=== PATIENT | male | born 1945 | race Caucasian/White ===

== ENCOUNTER → 2020-09-14 09:30 | Outpatient (CLI) | payer MEDICARE, SELFPAY ==
--- NOTE | ~2020-09-14 | XR_ITS ---
EXAMINATION: XR ankle RT min 3V DATE: 09/14/2020 10:05 INDICATION: Right ankle pain. TECHNIQUE: 4 views of right ankle were obtained. COMPARISON: None. FINDINGS: Bone alignment is normal. There is a bone fragment anterior to distal fibula. There is mild ankle joint osteoarthritis. There is an enthesophyte at plantar aspect of calcaneal tuberosity. IMPRESSION: 1. Bone fragment anterior to distal fibula, which may be an acute avulsion fracture or finding from o ld injury. 2. Mild ankle joint osteoarthritis. Reviewed, dictated and finalized at location A. IMPRESSION: 1. Bone fragment anterior to distal fibula, which may be an acute avulsion frac ture or finding from old injury. 2. Mild ankle joint osteoarthritis.
== END ==
PROVIDERS: PCP Family Medicine Adolescent Medicine; Visit Provider Family Medicine Adolescent Medicine
DX: M25.571 Pain in right ankle and joints of right foot (principal); M19.071 Primary osteoarthritis, right ankle and foot; R93.7 Abnormal findings on diagnostic imaging of other parts of musculoskeletal system
CPT/HCPCS: 73610

== ENCOUNTER 2021-10-30 00:07 | Day surgery (SDC) | payer MEDICARE, SELFPAY ==
[2021-10-10 11:04] VITALS: BMI 27.3
[2021-10-30 06:23] VITALS: BP 185/81; PULSE 97; RESP 18; TEMP 36.4; O2SAT 97
[2021-10-30] MEDS: LACTATED RINGERS 1,000 ML 150 ML IV CONT (06:28)
--- NOTE | 2021-10-30 07:15 | PM.IMHP ---
H&P: HPI History of Present Illness Date/Time: 10/30/21 07:15 Chief Complaint: Neoplasia screening. Narrative: This is a 76-year-old white male patient presented for screening colonoscopy. Patient's current weight appetite and bowel movements are normal. Patient denies abdominal pain. He has had no bleeding. His last colonoscopy more than [address] Lundberg was unremarkable. Patient presents today for surveillance screening colonoscopy. Review of Systems Review of Systems: Review of systems noncontributory. [facility] Past Medical History Medical History Arthritis of ankle, right, degenerative Asthma Normal colonoscopy 2010 Family History Family History Father Malignant neoplasm of prostate Carcinoma of colon Colon polyp Heart disease Hypertension Other Asthma Social History Social History Smoking status: Never smoker Second hand tobacco smoke exposure: No Alcohol intake: never Substance use: never Substance use type: does not use Living arrangements: with family Gender identity (if verbalized by the patient): Male Sexual Orientation (if Verbalized by the Patient): Straight or Heterosexual Spiritual care concerns: No Agree to blood products: Yes Meds Home Medications and Allergies Home Medications Medication Instructions Recorded Confirmed Type albuterol sulfate 90 mcg/actuation 2 puff inhalation Q4H PRN 06/12/21 10/30/21 History aerosol inhaler Shortness Of Breath budesonide-formoterol HFA 160 2 puff inhalation BID 06/12/21 10/30/21 History mcg-4.5 mcg/actuation aerosol inhaler (Symbicort) simethicone 80 mg chewable tablet 80 mg PO QID PRN Gastrointestinal 06/12/21 10/30/21 History (Gas Relief (simethicone)) Spasms Or Cramping colchicine 0.6 mg capsule 0.6 mg PO .PRN PRN GOUT 07/12/21 10/30/21 History atorvastatin 20 mg tablet 10 mg PO DAILY #45 tabs 07/31/21 10/30/21 Rx montelukast 10 mg tablet 10 mg PO DAILY #90 tabs 07/31/21 10/30/21 Rx buspirone 10 mg tablet 10 mg PO BID #60 tabs 08/31/21 10/30/21 Rx sodium sul 1.479 gram-potas ch See Rx Instructions PO PER PKG DIR 09/07/21 10/30/21 Rx 0.188 gram-magnes sul 0.225 gram #24 tabs tablet (Sutab) omeprazole 20 mg capsule,delayed 20 mg PO DAILY #90 caps 09/22/21 10/30/21 Rx release carvedilol 12.5 mg tablet 12.5 mg PO Q12H #60 tabs 10/04/21 10/30/21 Rx Daily Fiber 1 tablet PO DAILY 10/10/21 10/30/21 History allopurinol 300 mg tablet 300 mg PO DAILY 10/10/21 10/30/21 History cetirizine 10 mg tablet 10 mg PO DAILY 10/10/21 10/30/21 History cholecalciferol (vitamin D3) 125 125 mcg PO 2XW 10/10/21 10/30/21 History mcg (5,000 unit) tablet (Vitamin D3) losartan 100 mg tablet 100 mg PO DAILY 10/10/21 10/30/21 History multivit,Ca,emxy-TI-yrknwmhk-lutn 1 tablet PO DAILY 10/10/21 10/30/21 History 18 mg-500 mcg-300 mcg-250 mcg tablet triamcinolone acetonide 0.1 % 1 applic topical BID PRN Rash 10/10/21 10/30/21 History topical cream Allergies Allergy/AdvReac Type Severity Reaction Status Date / Time lisinopril AdvReac Intermediate Cough Verified 10/30/21 06:20 Vital Signs Vital Signs - 24 hr 10/30/21 06:23 Temperature 97.6 F Pulse Rate 97 Respiratory Rate 18 Blood Pressure 185/81 H Pulse Oximetry 97 Oxygen Delivery Room Air Exam Narrative: Physical exam reveals patient to be alert. Vital signs stable. HEENT exam is unremarkable. Patient is anicteric. Lungs are clear to auscultation and percussion. Heart is without murmur or extra sounds. Abdomen bowel sounds are present soft nontender with no organomegaly. Digital external rectal exam is normal. Assessment and Plan Assessment and plan (1) Encounter for screening colonoscopy: Code(s): Z12.11 - Encounter for screening for malignant
--- NOTE | 2021-10-30 07:17 | WPDANESEPPF ---
Anes - Initial Pre Proc Eval Procedure: Operation Date: 10/30/21 07:30 Proposed Procedures p Screening Colonoscopy - Donn Curran MD Date/Time: 10/30/21 07:17 Surgeon: Donn Curran MD Pre Op Diagnosis: neoplasm screening Patient Data Age: 76 Gender: M Height: 1.85 m Weight: 90.4 kg Last Vital Signs Temp 97.6 F 10/30/21 06:23 Pulse 97 10/30/21 06:23 Resp 18 10/30/21 06:23 BP 185/81 H 10/30/21 06:23 Pulse Ox 97 10/30/21 06:23 O2 Del Method Room Air 10/30/21 06:23 Allergies Allergy/AdvReac Type Severity Reaction Status Date / Time lisinopril AdvReac Intermediate Cough Verified 10/30/21 06:20 Home Medications Medication Instructions Recorded Confirmed Type albuterol sulfate 90 mcg/actuation 2 puff inhalation Q4H PRN 06/12/21 10/30/21 History aerosol inhaler Shortness Of Breath budesonide-formoterol HFA 160 2 puff inhalation BID 06/12/21 10/30/21 History mcg-4.5 mcg/actuation aerosol inhaler (Symbicort) simethicone 80 mg chewable tablet 80 mg PO QID PRN Gastrointestinal 06/12/21 10/30/21 History (Gas Relief (simethicone)) Spasms Or Cramping colchicine 0.6 mg capsule 0.6 mg PO .PRN PRN GOUT 07/12/21 10/30/21 History atorvastatin 20 mg tablet 10 mg PO DAILY #45 tabs 07/31/21 10/30/21 Rx montelukast 10 mg tablet 10 mg PO DAILY #90 tabs 07/31/21 10/30/21 Rx buspirone 10 mg tablet 10 mg PO BID #60 tabs 08/31/21 10/30/21 Rx sodium sul 1.479 gram-potas ch See Rx Instructions PO PER PKG DIR 09/07/21 10/30/21 Rx 0.188 gram-magnes sul 0.225 gram #24 tabs tablet (Sutab) omeprazole 20 mg capsule,delayed 20 mg PO DAILY #90 caps 09/22/21 10/30/21 Rx release carvedilol 12.5 mg tablet 12.5 mg PO Q12H #60 tabs 10/04/21 10/30/21 Rx Daily Fiber 1 tablet PO DAILY 10/10/21 10/30/21 History allopurinol 300 mg tablet 300 mg PO DAILY 10/10/21 10/30/21 History cetirizine 10 mg tablet 10 mg PO DAILY 10/10/21 10/30/21 History cholecalciferol (vitamin D3) 125 125 mcg PO 2XW 10/10/21 10/30/21 History mcg (5,000 unit) tablet (Vitamin D3) losartan 100 mg tablet 100 mg PO DAILY 10/10/21 10/30/21 History multivit,Ca,zpll-EH-rxfnxtrc-lutn 1 tablet PO DAILY 10/10/21 10/30/21 History 18 mg-500 mcg-300 mcg-250 mcg tablet triamcinolone acetonide 0.1 % 1 applic topical BID PRN Rash 10/10/21 10/30/21 History topical cream Patient hx anesthesia problems: none Family hx anesthesia problems: none Results Review: All pre-operative results and documents have been reviewed as part of the pre-operative evaluation. [facility] Past Medical History Medical History Arthritis of ankle, right, degenerative Asthma Normal colonoscopy 2010 Family History Family History Father Malignant neoplasm of prostate Carcinoma of colon Colon polyp Heart disease Hypertension Other Asthma Social History Social History Smoking status: Never smoker Second hand tobacco smoke exposure: No Alcohol intake: never Substance use: never Substance use type: does not use Living arrangements: with family Gender identity (if verbalized by the patient): Male Sexual Orientation (if Verbalized by the Patient): Straight or Heterosexual Spiritual care concerns: No Agree to blood products: Yes Anes - Eval Final PreProcedure Day of Procedure 10/30/21 07:17 Patient weight: normal Heart: regular rate and rhythm Lungs: clear to auscultation Airway: Mallampati scale class II Neurological: alert and oriented Last oral intake: >/= 8 hours ASA classification: II Emergent: no Anesthetic plan: proceed Anesthesia type and monitoring: general GIVS and standard monitoring Results Review: All pre-operative results and documents have been reviewed as part of the pre-operative evaluation. Informed Consent: The patient's
[2021-10-30 07:51] VITALS: BP 115/63; PULSE 69; RESP 13; O2SAT 96
[2021-10-30 08:01] VITALS: BP 134/68; PULSE 58; RESP 13; O2SAT 98
[2021-10-30 08:11] VITALS: BP 149/77; PULSE 59; RESP 14; O2SAT 98
== END 2021-10-30 08:19 | disposition home or self-care (01) ==
PROVIDERS: PCP Family Medicine Adolescent Medicine; Visit Provider Internal Medicine Gastroenterology
PROC: 0DJD8ZZ Inspection of Lower Intestinal Tract, Via Natural or Artificial Opening Endoscopic (ICD-10-PCS; CPT 45378; principal; 2021-10-30 07:30)
DX: Z12.11 Encounter for screening for malignant neoplasm of colon (principal); K57.30 Diverticulosis of large intestine without perforation or abscess without bleeding; Z79.51 Long term (current) use of inhaled steroids; J45.909 Unspecified asthma, uncomplicated; M19.90 Unspecified osteoarthritis, unspecified site
CPT/HCPCS: G0121; J2704; J7120

== ENCOUNTER 2022-02-26 15:58 | Emergency (ER) | payer MEDICARE, SELFPAY ==
--- NOTE | ~2022-02-26 | XR_ITS ---
EXAM: XR wrist LT min 3V DATE: 02/26/2022 16:31 HISTORY: left wrist pain, fell in driveway . COMPARISON: None available. FINDINGS: Decreased mineralization. No definite acute fracture or dislocation. No lytic or blastic l esion. Scattered degenerative changes. Chondrocalcinosis. Ossified fragment in the anteromedial wrist adjacent to the intact scaphoid, may represent an old radial styloid fracture or a loose joint body in an anteromedial joint recess. Ossific fragment projecting dorsally to the proximal and mid carpal row. No erosion or periosteal change. Soft tissues within normal limits. IMPRESSION: No definite acute osseous finding in the left wrist. Dorsal bone fragment, presumably sec ondary to an old triquetral fracture, unless accompanied by acute pain/tenderness. Old radial styloid fracture fragment versus loose body. 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 Dorsal bone fr agment, presumably secondary to an old triquetral fracture, unless accompanied by acute pain/tenderness. Old radial styloid fracture fragment versus loose bod y.
[2022-02-26 16:10] VITALS: BP 142/81; PULSE 67; RESP 18; TEMP 36.4; O2SAT 100
--- NOTE | 2022-02-26 16:17 | ED.UPPEXIN ---
HPI - Extremity Injury (Upper) General Chief Complaint: Extremity Injury, Upper Stated Complaint: Left Wrist Pain Time Seen by Provider: 02/26/22 16:22 Source: patient, RN notes reviewed and old records reviewed Mode of arrival: ambulatory Limitations: no limitations History of Present Illness HPI narrative: 76-year-old male presents to the [facility] with complaints of left wrist pain after tripping and falling in his driveway. Did not hit head loss of consciousness. Tender and minor swelling noted to the ulnar aspect of the left wrist. MD complaint: injury to: left and wrist Related Data Home Medications Medication Instructions Recorded Confirmed albuterol sulfate 90 mcg/actuation 2 puff inhalation Q4H PRN 06/12/21 02/26/22 aerosol inhaler Shortness Of Breath budesonide-formoterol HFA 160 2 puff inhalation BID 06/12/21 02/26/22 mcg-4.5 mcg/actuation aerosol inhaler (Symbicort) simethicone 80 mg chewable tablet 80 mg PO QID PRN Gastrointestinal 06/12/21 02/26/22 (Gas Relief (simethicone)) Spasms Or Cramping colchicine 0.6 mg capsule 0.6 mg PO .PRN PRN GOUT 07/12/21 02/26/22 Daily Fiber 1 tablet PO DAILY 10/10/21 02/26/22 allopurinol 300 mg tablet 300 mg PO DAILY 10/10/21 02/26/22 cetirizine 10 mg tablet 10 mg PO DAILY 10/10/21 02/26/22 cholecalciferol (vitamin D3) 125 125 mcg PO 2XW 10/10/21 02/26/22 mcg (5,000 unit) tablet (Vitamin D3) multivit,Ca,rkcr-GB-ykbmianr-lutn 1 tablet PO DAILY 10/10/21 02/26/22 18 mg-500 mcg-300 mcg-250 mcg tablet triamcinolone acetonide 0.1 % 1 applic topical BID PRN Rash 10/10/21 02/26/22 topical cream Allergies Allergy/AdvReac Type Severity Reaction Status Date / Time lisinopril AdvReac Intermediate Cough Verified 10/30/21 06:20 Review of Systems Review of Systems: All systems reviewed & are unremarkable except as noted in HPI and below Constitutional: Constitutional: Reports no additional constitutional complaints Eyes: Eyes: Reports no additional eye complaints ENT: Reports system reviewed and no additional complaints, except as documented Cardiovascular: Cardiovascular: Reports no additional cardiovascular complaints, Denies chest pain and Denies dyspnea Respiratory: Respiratory: Reports no additional respiratory complaints, Denies chest congestion, Denies cough and Denies dyspnea Gastrointestinal: Gastrointestinal: Reports no additional gastrointestinal complaints, Denies abdominal pain, Denies nausea and Denies vomiting Musculoskeletal: Musculoskeletal: Reports as per HPI and Reports arthralgias (Left wrist ulnar aspect, dorsal) Integumentary/Breasts: Skin/Breast: Reports system reviewed and no additional complaints, except as docu Neurologic: Reports system reviewed and no additional complaints, except as documented Psychiatric: Psychiatric: Reports no additional psychiatric complaints Allergic/Immunologic: Allergic/Immunologic: Reports no additional allergic/immunologic complaints [facility] Past Medical History Medical History Arthritis of ankle, right, degenerative Asthma Normal colonoscopy 2010 Family History Family History Father Malignant neoplasm of prostate Carcinoma of colon Colon polyp Heart disease Hypertension Other Asthma Social History Social History Smoking status: Never smoker Second hand tobacco smoke exposure: No Alcohol intake: never Substance use: never Substance use type: does not use Gender identity (if verbalized by the patient): Male Sexual Orientation (if Verbalized by the Patient): Straight or Heterosexual Spiritual care concerns: No Agree to blood products: Yes Comments At the time of my signature, I reviewed and agree with the nursing past medical, surgical, social, and family history. There is no relevant family history p
== END 2022-02-26 17:18 | disposition home or self-care (01) ==
PROVIDERS: Emergency Provider Nurse Practitioner; PCP Family Medicine Adolescent Medicine
DX: S62.115A Nondisplaced fracture of triquetrum [cuneiform] bone, left wrist, initial encounter for closed fracture (principal); W01.0XXA Fall on same level from slipping, tripping and stumbling without subsequent striking against object, initial encounter; J45.909 Unspecified asthma, uncomplicated; M19.071 Primary osteoarthritis, right ankle and foot
CPT/HCPCS: 29125; 73110; 99214; G0463

== ENCOUNTER → 2023-01-30 09:33 | Outpatient (CLI) | payer MEDICARE, SELFPAY ==
--- NOTE | ~2023-01-30 | XR_ITS ---
Clinical Indication: Hemoptysis PA and lateral views of the chest: Comparison: 02/15/2009 Findings: There is patchy airspace disease in the lingula, and to a lesser extent focally at the righ t lower lobe. Cardiomediastinal silhouette is within normal limits. Bones and soft tissues are unrem arkable. Impression: Patchy lingular pneumonia. Questionable focal involvement of the right lower lobe. Reviewed, dictated and finalized at location . 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 Questionable focal involvement of the right lower lo be.
== END ==
PROVIDERS: PCP Family Medicine Adolescent Medicine; Visit Provider Family Medicine Adolescent Medicine
DX: R04.2 Hemoptysis (principal); J18.8 Other pneumonia, unspecified organism
CPT/HCPCS: 71046

== ENCOUNTER → 2023-04-11 10:00 | Outpatient (CLI) | payer MEDICARE, SELFPAY ==
--- NOTE | ~2023-04-11 | XR_ITS ---
EXAMINATION: XR hip BI wo pelvis INDICATION: Bilateral hip pain TECHNIQUE: Two views of each hip are obtained. COMPARISON: None available FINDINGS: Bone alignment is normal. There is no fracture. There is moderate osteoarthritis of the hip s. IMPRESSION: 1. Moderate osteoarthritis of the hips. 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
== END ==
PROVIDERS: PCP Family Medicine Adolescent Medicine; Visit Provider Family Medicine Adolescent Medicine
DX: M16.0 Bilateral primary osteoarthritis of hip (principal)
CPT/HCPCS: 73521

== ENCOUNTER 2023-06-18 00:13 | Day surgery (SDC) | payer MEDICARE, SELFPAY ==
[2023-06-07 11:14] VITALS: BMI 26.7
--- NOTE | 2023-06-14 09:09 | SUR.PREOP ---
Patient called regarding upcoming procedure. Reviewed preop instructions, appointment times, and procedure prep.
[2023-06-18 08:50] VITALS: BP 153/67; PULSE 64; RESP 16; TEMP 36.3; O2SAT 98
[2023-06-18] MEDS: LACTATED RINGERS 1,000 ML 150 ML IV CONT (08:57)
--- NOTE | 2023-06-18 09:04 | WPDANESEPPF ---
Anes - Initial Pre Proc Eval Procedure: Operation Date: 06/18/23 10:00 Proposed Procedures p Esophagogastroduodenoscopy - Felipe Saucedo MD Date/Time: 06/18/23 09:04 Surgeon: Felipe Saucedo MD Pre Op Diagnosis: GERD Patient Data Age: 77 Gender: M Height: 1.85 m Weight: 94.1 kg Last Vital Signs Temp 97.3 F L 06/18/23 08:50 Pulse 64 06/18/23 08:50 Resp 16 06/18/23 08:50 BP 153/67 H 06/18/23 08:50 Pulse Ox 98 06/18/23 08:50 O2 Del Method Room Air 06/18/23 08:50 Allergies Allergy/AdvReac Type Severity Reaction Status Date / Time lisinopril AdvReac Intermediate Cough Verified 06/18/23 08:47 Home Medications Medication Instructions Recorded Confirmed Type albuterol sulfate 90 mcg/actuation 2 puff inhalation Q4H PRN 06/12/21 06/18/23 History aerosol inhaler Shortness Of Breath simethicone 80 mg chewable tablet 80 mg PO QID PRN Gastrointestinal 06/12/21 06/18/23 History (Gas Relief (simethicone)) Spasms Or Cramping colchicine 0.6 mg capsule 0.6 mg PO .PRN PRN GOUT 07/12/21 06/18/23 History Daily Fiber 1 tablet PO DAILY 10/10/21 06/18/23 History cetirizine 10 mg tablet 10 mg PO DAILY 10/10/21 06/18/23 History cholecalciferol (vitamin D3) 125 125 mcg PO 2XW 10/10/21 06/18/23 History mcg (5,000 unit) tablet (Vitamin D3) multivit,Ca,uftj-MN-khchkywe-lutn 1 tablet PO DAILY 10/10/21 06/18/23 History 18 mg-500 mcg-300 mcg-250 mcg tablet triamcinolone acetonide 0.1 % 1 applic topical BID PRN Rash 10/10/21 06/18/23 History topical cream allopurinol 300 mg tablet See Rx Instructions .Route 09/21/22 06/18/23 Rx .COMPLEX #90 tabs atorvastatin 20 mg tablet 10 mg PO DAILY #45 tabs 12/21/22 06/18/23 Rx carvedilol 25 mg tablet 25 mg PO BID #180 tabs 01/04/23 06/18/23 Rx montelukast 10 mg tablet 10 mg PO DAILY #90 tabs 02/24/23 06/18/23 Rx diclofenac sodium 75 mg 75 mg PO BID PRN pain #60 tabs 04/11/23 06/18/23 Rx tablet,delayed release amlodipine 2.5 mg tablet See Rx Instructions .Route 04/17/23 06/18/23 Rx .COMPLEX #90 tabs losartan 100 mg tablet See Rx Instructions .Route 04/17/23 06/18/23 Rx .COMPLEX #90 tabs budesonide-formoterol HFA 160 2 puff inhalation BID 05/01/23 06/18/23 History mcg-4.5 mcg/actuation aerosol inhaler (Symbicort) pantoprazole 40 mg tablet,delayed See Rx Instructions .Route 05/30/23 06/18/23 Rx release .COMPLEX #180 tabs Patient hx anesthesia problems: none Family hx anesthesia problems: none Results Review: All pre-operative results and documents have been reviewed as part of the pre-operative evaluation. [facility] Past Medical History Medical History Arthritis of ankle, right, degenerative Asthma Fracture of triquetral bone of left wrist Normal colonoscopy 2010 Family History Family History Father Malignant neoplasm of prostate Carcinoma of colon Colon polyp Heart disease Hypertension Other Asthma Social History Social History Years smoked: 10 Smoking status: Former smoker Tobacco type: cigarettes Second hand tobacco smoke exposure: No Alcohol intake: never Substance use: never Substance use type: does not use Living arrangements: alone Occupation/Education: retired Gender identity (if verbalized by the patient): Male Sexual Orientation (if Verbalized by the Patient): Straight or Heterosexual Spiritual care concerns: No Agree to blood products: Yes Anes - Eval Final PreProcedure Day of Procedure 06/18/23 09:04 Patient weight: normal Heart: regular rate and rhythm Lungs: clear to auscultation Airway: Mallampati scale class II Neurological: alert and oriented Last oral intake: >/= 8 hours ASA classification: III Emergent: no Anesthetic plan: proceed Anesthesia type and mo
--- NOTE | 2023-06-18 09:26 | PM.HPGS ---
History of Present Illness History of Present Illness Consent: Risks, benefits, and alternatives have been discussed and questions answered. Patient agrees to proceed with procedure. Chief complaint: GERD Narrative: Selvin Orozco is a 77 year old male with belching and dyspepsia, he is using pantoprazole but still symptomatic, had egd but years ago Review of Systems Review of Systems: All systems reviewed & are unremarkable except as noted in HPI and below PMFSH Past Medical History Medical History (Updated 06/18/23 @ 09:27 by Felipe Saucedo MD) Arthritis of ankle, right, degenerative Asthma Belching Fracture of triquetral bone of left wrist Normal colonoscopy 2010 Family History Family History Father Malignant neoplasm of prostate Carcinoma of colon Colon polyp Heart disease Hypertension Other Asthma Social History Social History Years smoked: 10 Smoking status: Former smoker Tobacco type: cigarettes Second hand tobacco smoke exposure: No Alcohol intake: never Substance use: never Substance use type: does not use Living arrangements: alone Occupation/Education: retired Gender identity (if verbalized by the patient): Male Sexual Orientation (if Verbalized by the Patient): Straight or Heterosexual Spiritual care concerns: No Agree to blood products: Yes Meds Home Medications and Allergies Home Medications Medication Instructions Recorded Confirmed Type albuterol sulfate 90 mcg/actuation 2 puff inhalation Q4H PRN 06/12/21 06/18/23 History aerosol inhaler Shortness Of Breath simethicone 80 mg chewable tablet 80 mg PO QID PRN Gastrointestinal 06/12/21 06/18/23 History (Gas Relief (simethicone)) Spasms Or Cramping colchicine 0.6 mg capsule 0.6 mg PO .PRN PRN GOUT 07/12/21 06/18/23 History Daily Fiber 1 tablet PO DAILY 10/10/21 06/18/23 History cetirizine 10 mg tablet 10 mg PO DAILY 10/10/21 06/18/23 History cholecalciferol (vitamin D3) 125 125 mcg PO 2XW 10/10/21 06/18/23 History mcg (5,000 unit) tablet (Vitamin D3) multivit,Ca,ztbf-QG-xeqdpcrl-lutn 1 tablet PO DAILY 10/10/21 06/18/23 History 18 mg-500 mcg-300 mcg-250 mcg tablet triamcinolone acetonide 0.1 % 1 applic topical BID PRN Rash 10/10/21 06/18/23 History topical cream allopurinol 300 mg tablet See Rx Instructions .Route 09/21/22 06/18/23 Rx .COMPLEX #90 tabs atorvastatin 20 mg tablet 10 mg PO DAILY #45 tabs 12/21/22 06/18/23 Rx carvedilol 25 mg tablet 25 mg PO BID #180 tabs 01/04/23 06/18/23 Rx montelukast 10 mg tablet 10 mg PO DAILY #90 tabs 02/24/23 06/18/23 Rx diclofenac sodium 75 mg 75 mg PO BID PRN pain #60 tabs 04/11/23 06/18/23 Rx tablet,delayed release amlodipine 2.5 mg tablet See Rx Instructions .Route 04/17/23 06/18/23 Rx .COMPLEX #90 tabs losartan 100 mg tablet See Rx Instructions .Route 04/17/23 06/18/23 Rx .COMPLEX #90 tabs budesonide-formoterol HFA 160 2 puff inhalation BID 05/01/23 06/18/23 History mcg-4.5 mcg/actuation aerosol inhaler (Symbicort) pantoprazole 40 mg tablet,delayed See Rx Instructions .Route 05/30/23 06/18/23 Rx release .COMPLEX #180 tabs Allergies Allergy/AdvReac Type Severity Reaction Status Date / Time lisinopril AdvReac Intermediate Cough Verified 06/18/23 08:47 Vital Signs Vital Signs - 24 hr 06/18/23 08:50 Temperature 97.3 F L Pulse Rate 64 Respiratory Rate 16 Blood Pressure 153/67 H Pulse Oximetry 98 Oxygen Delivery Room Air Exam Const: General: comfortable and no acute distress HENMT: Face/Nose/Sinus: Normal nares present Eyes: General: appearance normal, both eyes and all related structures Neck: Neck: no JVD Resp: Auscultation: clear to auscultation bilaterally Cardio: Rate: regular rate Rhythm: regular rhythm GI: Inspection: non-distended GI Palp: Yes Soft
[2023-06-18 09:37] VITALS: BP 110/64; PULSE 64; RESP 17; O2SAT 100
[2023-06-18 09:47] VITALS: BP 101/82; PULSE 57; RESP 14; O2SAT 100
[2023-06-18 09:57] VITALS: BP 131/61; PULSE 59; RESP 15; O2SAT 100
== END 2023-06-18 10:42 | disposition home or self-care (01) ==
PROVIDERS: PCP Family Medicine Adolescent Medicine; Visit Provider Internal Medicine Gastroenterology
PROC: 0DJ08ZZ Inspection of Upper Intestinal Tract, Via Natural or Artificial Opening Endoscopic (ICD-10-PCS; CPT 43235; principal; 2023-06-18 10:00)
DX: K29.50 Unspecified chronic gastritis without bleeding (principal); K29.80 Duodenitis without bleeding; K21.9 Gastro-esophageal reflux disease without esophagitis; K44.9 Diaphragmatic hernia without obstruction or gangrene; J45.909 Unspecified asthma, uncomplicated; Z87.891 Personal history of nicotine dependence; Z79.51 Long term (current) use of inhaled steroids
CPT/HCPCS: 43239; 88305; J2704; J7120

== ENCOUNTER 2023-07-02 08:09 | Outpatient (CLI) | payer MEDICARE, SELFPAY ==
--- NOTE | ~2023-07-02 | XR_ITS ---
EXAMINATION: XR UGIAC w barium swallow DATE: 07/02/2023 08:43 INDICATION: Increased belching. Reflux. Hiatal hernia. TECHNIQUE: The patient drank thick barium, gas-producing crystals, and thin barium. Fluoroscopy of th e esophagus, stomach, and proximal small bowel was performed. Fluoroscopy exposure time was 0.7 minut es. The total number of images was 277. Total dose-area product was 2.875 Gy-cm^2. COMPARISON: None. FINDINGS: There is no mass or stricture of the esophagus. Esophageal motility is normal. There is a m oderate-sized sliding hiatal hernia. There was no gastroesophageal reflux with provocative maneuvers. The stomach and proximal small bowel show normal folding patterns. IMPRESSION: 1. Moderate-sized sliding hiatal hernia. Reviewed, dictated and finalized at location A.
== END 2023-07-02 08:10 | disposition home or self-care (01) ==
PROVIDERS: PCP Family Medicine Adolescent Medicine; Visit Provider Surgery
DX: K21.9 Gastro-esophageal reflux disease without esophagitis (principal); K44.9 Diaphragmatic hernia without obstruction or gangrene
CPT/HCPCS: 74246

== ENCOUNTER 2023-09-11 13:53 | Outpatient (CLI) | payer MEDICARE, SELFPAY ==
--- NOTE | ~2023-09-11 | XR_ITS ---
XR chest 2V Ordering provider: Danielito Arias MD History: 77 years Male with . GERD, PRE - OP TESTING . Comparison: January 30, 2023 FINDINGS: MEDIASTINUM: The cardiac silhouette is not enlarged. LUNGS: No infiltrates, effusions or pneumothorax. Prominent markings in the lower lobes. OTHER: No free air under the diaphragm. IMPRESSION: Prominent markings in the lower lobes.. Reviewed, dictated and finalized at location A.
--- NOTE | 2023-09-11 14:46 | ECG_ITS ---
Test Date: 2023-09-11 15:09:49 Measurements Intervals [place] Rate: 61 P: 46 MD: 166 QRS: 19 QRSD: 105 T: 30 QT: 425 QTc: 429 Interpretive Statements SINUS RHYTHM NORMAL ECG No previous ECG available for comparison Electronically Signed On 09-11-2023 15:18:29 CDT by Mario Santiago M.D.
[2023-09-11 15:22] LABS: Basophils Percent Auto 0.1 % (0.2-1.2); Eosinophils Absolute Auto 0.3 K/mm3 (0-0.3); Eosinophils Percent Auto 3.3 % (0-4.4); Hematocrit 35.2 % (42.0-52.0); Hemoglobin 11.7 g/dL (14.0-18.0); Immature Granulocyte Absolute 0.02 K/mm3 (0.00-0.031); Immature Granulocyte Percent A 0.2 % (0-0.5); Lymphocytes Absolute Auto 1.73 K/mm3 (0.9-3.2); Lymphocytes Percent Auto 20.3 % (18.3-44.2); Mean Corpuscular HGB Conc 33.2 g/dl (32-36); Mean Corpuscular Hemoglobin 32.4 pg (26-34); Mean Corpuscular Volume 97.5 fl (80-100); Mean Platelet Volume 10.3 fl (7.4-10.4); Monocytes Absolute Auto 0.7 K/mm3 (0.1-0.6); Monocytes Percent Auto 7.8 % (2.6-8.5); Neutrophils Absolute Auto 5.8 K/mm3 (1.3-6.7); Neutrophils Percent Auto 68.3 % (45.5-73.1); Platelet Count Result 262 k/mm3 (150-375); Red Blood Count 3.61 M/mm3 (4.6-6.20); Red Cell Distribution Width 14.6 % (11.5-14.5); White Blood Count 8.5 K/mm3 (4.5-10.0)
[2023-09-11 15:33] LABS: Prothrombin Time 13.9 Seconds (11.1-14.7)
[2023-09-11 15:34] LABS: Anion Gap 5 mmol/L (4-12); Blood Urea Nitrogen 29 mg/dL (9-20); Calcium 8.8 mg/dL (8.4-10.2); Carbon Dioxide 27 mmol/L (22-30); Chloride 109 mmol/L (98-107); Estimated Glomerular Filt Rate 35; Glucose 92 mg/dL (65-110); Partial Thromboplastin Time 32.1 Seconds (22.3-36.8); Potassium 4.3 mmol/L (3.4-5.0); Sodium 141 mmol/L (137-145)
== END 2023-09-11 13:54 | disposition home or self-care (01) ==
LOC: ANHSURGERY 13:56
PROVIDERS: Anesthesiology; PCP Family Medicine Adolescent Medicine; Visit Provider Surgery
DX: Z01.818 Encounter for other preprocedural examination (principal); K21.9 Gastro-esophageal reflux disease without esophagitis; K44.9 Diaphragmatic hernia without obstruction or gangrene; N18.32 Chronic kidney disease, stage 3b; R91.8 Other nonspecific abnormal finding of lung field
CPT/HCPCS: 36415; 71046; 80048; 85025; 85610; 85730; 86850; 86900; 86901; 93005

== ENCOUNTER 2023-09-19 00:28 | Day surgery (SDC) | payer MEDICARE, SELFPAY ==
[2023-09-11 14:19] VITALS: BP 133/74; PULSE 58; RESP 16; TEMP 37.1; O2SAT 98; BMI 28.1
--- NOTE | 2023-09-11 14:29 | PC.NURSE ---
Report to the Outpatient Waiting Room, entrance under the green pavilion located off [facility], at time ___10:00AM____ on date ___09/19/23____. Planned Procedure Time: ___12:00PM . Time changes happen often and if your time is changed the preop area will call you the afternoon before. - You and your visitor will be asked to self-screen and do not enter if you have any COVID symptoms. - A mask is optional within the hospital at this time. Patients may have clear liquids (water, carbonated beverages, clear teas, apple juice) until 3 hours prior to surgery with a maximum of 20 ounces. - No food from midnight until time of surgery. Take the following medications with a SIP of water the morning of surgery: ____SYMBICORT INHALER, AMLODIPINE, CARVEDILOL. MAY USE ALBUTEROL INHALER NEEDED FOR SHORTNESS OR BREATH OR WHEEZING DO NOT STOP ANY OF YOUR OTHER PRESCRIPTION MEDICATIONS PRIOR TO SURGERY ?EXCEPT THE FOLLOWING Medications to discontinue per physician ____HOLD ALL VITAMINS/SUPPLEMENTS 3 DAYS PRE-OP PER ANESTHESIA Date to take last dose____09/15/23 Please no make-up, nail marshallese, hairspray, perfume, deodorant, or body powder the day of surgery. No jewelry (including any body piercings) or valuables the day of surgery, leave them at home. Please take a shower or bath the night before, or the morning of, surgery with an antibacterial soap. Wear comfortable, loose fitting clothing. - Jewelry must be removed prior to entering the operating room. Rings and piercings that are not removed may be cut off. - The hospital will not accept responsibility for valuables. - Please leave all valuables, including medications, at home the day of surgery. If you are going home after surgery, a licensed catshovel driver must drive you home. - NO public transportation without another adult if you receive anesthesia. - We recommend that an adult stay with you for 24 hours following discharge. - We also recommend that you do not drive, make important decision, drink alcoholic beverages, or take any drugs that were not prescribed by your health care provider for at least 24 hours after your discharge time. Follow any additional instructions given to you from your surgeon. If you or anyone in your household have experienced Covid symptoms in the past week, please notify your surgeon or the nurse liaison at the phone number below for possible testing. Telephone instructions given to ___PATIENT and asked if any additional questions and then verbalized understanding. Patient advised to call surgeon office or pre surgery nurse liaison [phone] if any additional questions.
--- NOTE | 2023-09-18 17:14 | PM.IMHP ---
H&P: HPI History of Present Illness Date/Time: 09/18/23 17:14 Chief Complaint: Heartburn Narrative: Patient is a 78-year-old man who has been plagued with recalcitrant gastroesophageal reflux will with heartburn despite taking Protonix twice a day and doing the other positional means of minimizing reflux symptoms. He had an EGD which showed a hiatal hernia and some gastritis. He had an upper GI which showed a hiatal hernia but no reflux. He underwent esophageal manometry which showed adequate esophageal peristalsis for anti-reflux surgery. He also had 24 hour pH testing off proton pump inhibitors which was markedly positive with a DeMeester score of nearly 50. After thorough discussion, he is taken to surgery now for laparoscopic hiatal hernia repair with Bunny fundoplication. Review of Systems Review of Systems: All systems reviewed & are unremarkable except as noted in HPI and below (HPI and those items noted below) Constitutional: Constitutional: Denies chills and Denies fever(s) Cardiovascular: Cardiovascular: Denies chest pain, Denies diaphoresis, Denies dyspnea and Denies paroxysmal nocturnal dyspnea Respiratory: Respiratory: Denies chest congestion, Denies cough and Denies dyspnea Integumentary/Breasts: Skin/Breast: Denies lesions and Denies rash PMFSH Past Medical History Medical History Arthritis of ankle, right, degenerative Asthma Belching Fracture of triquetral bone of left wrist Hiatal hernia Normal colonoscopy 2010 Surgical History Surgical History History of bladder surgery Family History Family History Father Malignant neoplasm of prostate Carcinoma of colon Colon polyp Heart disease Hypertension Other Asthma Social History Social History Smoking packs per day: 0.5 Smoking cigarettes per day: 10.0 Years smoked: 6 Smoking pack-years: 3.00 Smoking status: Former smoker Tobacco type: cigarettes Second hand tobacco smoke exposure: No Smoking end date: 09/22/89 Alcohol intake: never Substance use: never Substance use type: does not use Living arrangements: with family Additional living arrangements comments: Occupation/Education: retired Gender identity (if verbalized by the patient): Male Sexual Orientation (if Verbalized by the Patient): Straight or Heterosexual Spiritual care concerns: No Agree to blood products: Yes Meds Home Medications and Allergies Home Medications Medication Instructions Recorded Confirmed Type albuterol sulfate 90 mcg/actuation 2 puff inhalation Q4H PRN 06/12/21 09/11/23 History aerosol inhaler Shortness Of Breath simethicone 80 mg chewable tablet 80 mg PO QID PRN Gastrointestinal 06/12/21 09/11/23 History (Gas Relief (simethicone)) Spasms Or Cramping colchicine 0.6 mg capsule 0.6 mg PO .PRN PRN GOUT 07/12/21 09/11/23 History Daily Fiber 1 tablet PO DAILY 10/10/21 09/11/23 History cetirizine 10 mg tablet 10 mg PO DAILY 10/10/21 09/11/23 History cholecalciferol (vitamin D3) 125 125 mcg PO 2XW 10/10/21 09/11/23 History mcg (5,000 unit) tablet (Vitamin D3) multivit,Ca,awtj-TO-ozslwndb-lutn 1 tablet PO DAILY 10/10/21 09/11/23 History 18 mg-500 mcg-300 mcg-250 mcg tablet montelukast 10 mg tablet 10 mg PO DAILY #90 tabs 02/24/23 09/11/23 Rx amlodipine 2.5 mg tablet See Rx Instructions .Route 04/17/23 09/11/23 Rx .COMPLEX #90 tabs losartan 100 mg tablet See Rx Instructions .Route 04/17/23 09/11/23 Rx .COMPLEX #90 tabs budesonide-formoterol HFA 160 2 puff inhalation BID 05/01/23 09/11/23 History mcg-4.5 mcg/actuation aerosol inhaler (Symbicort) carvedilol 25 mg tablet 25 mg PO BID #180 tabs 07/29/23 09/11/23 Rx allopurinol 300 mg tablet See Rx Instructions .Route 09/01/23
[2023-09-19] VITALS (12 sets, daily range): BP systolic 120–181; BP diastolic 62–91; PULSE 64–87; RESP 12–20; TEMP 35.6–36.9; O2SAT 90–100
[2023-09-19] MEDS: LACTATED RINGERS 1,000 ML 30 ML IV CONT ×2 (11:00→15:48)
--- NOTE | 2023-09-19 11:45 | WPDANESEPPF ---
Anes - Initial Pre Proc Eval Procedure: Operation Date: 09/19/23 12:00 Proposed Procedures p Laparoscopic Bunny Fundoplication, Hiatal Hernia Repair - Danielito Arias MD Date/Time: 09/19/23 11:45 Surgeon: Danielito Arias MD Pre Op Diagnosis: GERD, hiatal hernia Patient Data Age: 78 Gender: M Height: 1.83 m Weight: 94.1 kg Last Vital Signs Temp 36.5 C 09/19/23 10:15 Pulse 64 09/19/23 10:15 Resp 16 09/11/23 14:19 BP 181/73 H 09/19/23 10:15 Pulse Ox 100 09/19/23 10:15 O2 Del Method Room Air 09/19/23 10:15 Allergies Allergy/AdvReac Type Severity Reaction Status Date / Time lisinopril AdvReac Intermediate Cough Verified 09/19/23 10:14 Home Medications Medication Instructions Recorded Confirmed Type albuterol sulfate 90 mcg/actuation 2 puff inhalation Q4H PRN 06/12/21 09/11/23 History aerosol inhaler Shortness Of Breath simethicone 80 mg chewable tablet 80 mg PO QID PRN Gastrointestinal 06/12/21 09/11/23 History (Gas Relief (simethicone)) Spasms Or Cramping colchicine 0.6 mg capsule 0.6 mg PO .PRN PRN GOUT 07/12/21 09/11/23 History Daily Fiber 1 tablet PO DAILY 10/10/21 09/11/23 History cetirizine 10 mg tablet 10 mg PO DAILY 10/10/21 09/11/23 History cholecalciferol (vitamin D3) 125 125 mcg PO 2XW 10/10/21 09/11/23 History mcg (5,000 unit) tablet (Vitamin D3) multivit,Ca,cyrz-NB-ldfxqnje-lutn 1 tablet PO DAILY 10/10/21 09/11/23 History 18 mg-500 mcg-300 mcg-250 mcg tablet montelukast 10 mg tablet 10 mg PO DAILY #90 tabs 02/24/23 09/11/23 Rx amlodipine 2.5 mg tablet See Rx Instructions .Route 04/17/23 09/11/23 Rx .COMPLEX #90 tabs losartan 100 mg tablet See Rx Instructions .Route 04/17/23 09/11/23 Rx .COMPLEX #90 tabs budesonide-formoterol HFA 160 2 puff inhalation BID 05/01/23 09/11/23 History mcg-4.5 mcg/actuation aerosol inhaler (Symbicort) carvedilol 25 mg tablet 25 mg PO BID #180 tabs 07/29/23 09/11/23 Rx allopurinol 300 mg tablet See Rx Instructions .Route 09/01/23 09/11/23 Rx .COMPLEX #90 tabs atorvastatin 20 mg tablet 10 mg PO DAILY #45 tabs 09/01/23 09/11/23 Rx diclofenac sodium 75 mg 75 mg PO BID pain 09/11/23 09/11/23 History tablet,delayed release pantoprazole 40 mg tablet,delayed 40 mg PO DAILY 09/11/23 09/11/23 History release Patient hx anesthesia problems: none Family hx anesthesia problems: none Results Review: All pre-operative results and documents have been reviewed as part of the pre-operative evaluation. [facility] Past Medical History Medical History Arthritis of ankle, right, degenerative Asthma Belching Fracture of triquetral bone of left wrist Hiatal hernia Normal colonoscopy 2010 Surgical History Surgical History History of bladder surgery Family History Family History Father Malignant neoplasm of prostate Carcinoma of colon Colon polyp Heart disease Hypertension Other Asthma Social History Social History Smoking packs per day: 0.5 Smoking cigarettes per day: 10.0 Years smoked: 6 Smoking pack-years: 3.00 Smoking status: Former smoker Tobacco type: cigarettes Second hand tobacco smoke exposure: No Smoking end date: 09/22/89 Alcohol intake: never Substance use: never Substance use type: does not use Living arrangements: with family Additional living arrangements comments: Occupation/Education: retired Gender identity (if verbalized by the patient): Male Sexual Orientation (if Verbalized by the Patient): Straight or Heterosexual Spiritual care concerns: No Agree to blood products: Yes Anes - Eval Final PreProcedure Day of Procedure 09/19/23 11:45 Patient weight: overweight Heart: regular rate and rhythm L
--- NOTE | 2023-09-19 12:11 | WPDHPUPDATE1 ---
History and Physical Update Update Date/Time: 09/19/23 12:11 History and Physical has been reviewed, including an updated exam of the patient. There are NO changes in the patient's condition. Risks, benefits, and alternatives have been discussed and questions answered. Patient agrees to proceed with procedure.
[2023-09-19] MEDS: ceFAZolin 2 GM/D5W 50 ML 2 GM/50 ML BAG IVPB (12:19)
[2023-09-19] MEDS: BUPIVACAINE/EPINEPHRINE 0.5% 10 ML VIAL 30 ML INFILTRATE (12:46)
--- NOTE | 2023-09-19 15:53 | W.PM.PROC2 ---
Procedure Note - Detailed Date of Procedure 09/19/23 Pre-op Diagnosis GERD, hiatal hernia Post-op Diagnosis Same Procedure Performed Laparoscopic Bunny fundoplication with hiatal hernia repair Surgeon Danielito Arias MD [employer] Anesthesia General and Local Indications Patient has continued to have reflux despite taking proton pump inhibitors. He has had thorough testing and also has a hiatal hernia. He is taken to surgery now for laparoscopic repair of the hiatal hernia with Bunny fundoplication Findings Moderately large hiatal hernia with evidence of having been there a long time. Many dense adhesions and fibrotic adhesions were encountered. Description of Procedure Patient was taken to surgery and induced into general anesthesia. The abdomen is prepped and draped. Trocars were placed in the usual fashion after 1st using a varies needle to gain adequate insufflation. We used the Bladimir self-retaining retractor to elevate the lateral segment of the left lobe of the liver. Patient was placed in reverse Trendelenburg. The procedure was started with division of the gastrohepatic ligament. There was a large vascular structure crossing this and this was left alone. We divided the gastrohepatic ligament above and below it. We then encountered some of the fatty tissue associated with the hernia and after dissecting this were able to see the right christopher. Right christopher was then exposed over nearly its entirety. I then dissected medial to the right christopher and gained access to the mediastinum dissecting around the hernia sac. I then progressed dissecting around the hernia sac over the apex and even slightly posterior. We then dissected far up into the right side of the mediastinum freeing the herniated contents and in general the esophagus. This was continued as far as reasonable. There was still lot of tissue posterior to the stomach and esophagus along the left christopher. The stomach was then turned so that the greater curvature was anterior. Traction was placed on the omentum and we divided the short gastrics using the LigaSure. We continued from the midportion of the stomach over the fundus and eventually came in contact with the adhesions in hernia sac associated with the left side of the esophagus and the lower christopher. Exposure here was difficult but eventually we were able to dissect the hernia sac off the posterior christopher and gained access to the mediastinum on the left side of the esophagus. We dissected into the mediastinum in this direction well up into the mediastinum. I then went back and, elevating the esophagus, continue to free all the hernia sac from the left christopher. Mediastinal dissection was then continued from both the left and the right side bringing the hernia sac and contents down into the abdomen. Once this was accomplished, I used the LigaSure and excised the herniated contents as well as most of the hernia sac. I then placed a Medina drain around the esophagus such that it was located at the gastroesophageal junction. This was then used for some retraction. I re-entered the mediastinum further dissecting the esophagus from both the right and the left side ensuring adequate intra-abdominal esophageal length. Once this was completed, it was obvious we had at least 6 cm if not 8 cm of intra-abdominal esophagus. I then retracted the esophagus and upper stomach. We closed the hiatal hernia with interrupted suture of 0 Ethibond. The closure worked well and appeared very secure. It did not encroach on the esophagus. I then found the remnants of the short gastrics on the upper fundus of the stomach. This was grasped and then passed under the esophagus such that on the patient's right side I could grab the fundus with a noncrushing clamp and control it. At this point, I then brought an appropriate area of the greater curvature up to the distal esophagus. I used shoe shine technique to ensure that the fundoplication was not spira
[2023-09-19] MEDS: fentaNYL CITRATE INJ (*CRX) 100 MCG/2 ML VIAL 25 MCG IV PUSH (15:59)
[2023-09-19] MEDS: ACETAMINOPHEN 500 MG TABLET PO (17:20)
[2023-09-19] MEDS: LACTATED RINGERS 1,000 ML 100 ML IV CONT (17:21)
[2023-09-19] MEDS: FLUTICASONE/SALMETEROL 115-21 MCG INHALER 1 PUFF 2 PUFF INHALATION (20:36)
[2023-09-19] MEDS: SENNA/DOCUSATE SODIUM TABLET 2 TAB PO (20:54)
[2023-09-19] MEDS: carvediloL 25 MG TABLET PO (20:54)
[2023-09-19] MEDS: ENOXAPARIN 30 MG/0.3 ML SYRINGE SUB-Q (20:54)
[2023-09-20] VITALS (9 sets, daily range): BP systolic 136–170; BP diastolic 64–83; PULSE 58–92; RESP 16–18; TEMP 35.7–37.4; O2SAT 95–99
[2023-09-20 06:04] LABS: Hemoglobin 12.5 g/dL (14.0-18.0); Mean Corpuscular HGB Conc 33.8 g/dl (32-36); Mean Corpuscular Hemoglobin 32.6 pg (26-34); Mean Corpuscular Volume 96.6 fl (80-100); Mean Platelet Volume 10.7 fl (7.4-10.4); Platelet Count Result 266 k/mm3 (150-375); Red Blood Count 3.83 M/mm3 (4.6-6.20); Red Cell Distribution Width 14.2 % (11.5-14.5); White Blood Count 19.1 K/mm3 (4.5-10.0)
[2023-09-20 06:26] LABS: Anion Gap 6 mmol/L (4-12); Blood Urea Nitrogen 26 mg/dL (9-20); Calcium 8.8 mg/dL (8.4-10.2); Carbon Dioxide 26 mmol/L (22-30); Chloride 104 mmol/L (98-107); Estimated CRCL calculation 38 ml/min; Estimated Glomerular Filt Rate 42; Glucose 125 mg/dL (65-110); Potassium 4.5 mmol/L (3.4-5.0); Sodium 136 mmol/L (137-145)
[2023-09-20] MEDS: FLUTICASONE/SALMETEROL 115-21 MCG INHALER 1 PUFF 2 PUFF INHALATION ×2 (07:18→20:23)
[2023-09-20] MEDS: LOSARTAN POTASSIUM 100 MG TABLET BY MOUTH (08:22)
[2023-09-20] MEDS: allopurinoL 300 MG TABLET BY MOUTH (08:22)
[2023-09-20] MEDS: LORATADINE 10 MG TABLET PO (08:22)
[2023-09-20] MEDS: PANTOPRAZOLE 40 MG TABLET PO (08:22)
[2023-09-20] MEDS: MONTELUKAST SODIUM 10 MG TABLET PO (08:22)
[2023-09-20] MEDS: amLODIPine BESYLATE 2.5 MG TABLET BY MOUTH (08:22)
[2023-09-20] MEDS: ATORVASTATIN 10 MG TABLET PO (08:22)
[2023-09-20] MEDS: polyethylene glycoL 3350 17 GM POWD.PACK PO (08:23)
[2023-09-20] MEDS: ENOXAPARIN 30 MG/0.3 ML SYRINGE SUB-Q ×2 (08:28→20:18)
[2023-09-20] MEDS: carvediloL 25 MG TABLET PO ×2 (09:07→20:17)
--- NOTE | 2023-09-20 10:23 | PM.PNGS ---
Progress Note: A&P Assessment and Plan (1) Gastro-esophageal reflux disease without esophagitis: Code(s): K21.9 - Gastro-esophageal reflux disease without esophagitis Status: Chronic Assessment and Plan: Doing well postop day 1. Will advance to full liquids and eventually low-fiber diet. Up walking today. Could not sleep last night so advised to take his pain medicine and also I will order a sleeping pill if he has trouble sleeping again tonight. Wounds are healing nicely. Progressing as expected. (2) Hiatal hernia: Code(s): K44.9 - Diaphragmatic hernia without obstruction or gangrene Status: Chronic Assessment and Plan: Repaired with surgery (3) Hypertension: Qualifiers: Hypertension type: primary hypertension Qualified Code(s): I10 - Essential (primary) hypertension Code(s): I10 - Essential (primary) hypertension Status: Chronic (4) Gout: Qualifiers: Gout site: unspecified site Gout etiology: unspecified cause Chronicity: chronic Presence of tophus: without tophus Qualified Code(s): M1A.9XX0 - Chronic gout, unspecified, without tophus (tophi) Code(s): M10.9 - Gout, unspecified Status: Chronic Subjective Subjective Date/Time Seen: 09/20/23 10:23 Post Op day: 1 Patient reports: pain is less (Having very little pain.), tolerating liquids well, afebrile and other (Insomnia) Exam Const: General: comfortable and no acute distress Orientation/consciousness: patient oriented x3 GI: Inspection: no abdominal wall ecchymosis, incision (Dry and healing well) and scaphoid GI Palp: Yes Soft to palpation, Yes Tenderness to palpation present (GI) (Mild incisional tenderness), No Guarding due to palpation present (GI), No Hernia present, No Palpable mass present, No Ascites present and No Rebound tenderness present Auscultation: normal bowel sounds Neuro: General: patient oriented x3 and no focal motor deficits Extrem: General: no calf tenderness and no edema Psych: Affect: normal affect Insight: Good insight present (Psych) Judgement: Good judgement present (Psych) Objective Data Vital Signs Vital Signs: Vital Signs - 24 hr 09/19/23 15:48 09/19/23 16:00 09/19/23 16:15 Temperature 36.1 C L Pulse Rate 74 85 Respiratory Rate 18 12 16 Blood Pressure 120/86 139/64 149/71 H Pulse Oximetry 98 98 96 Oxygen Delivery Simple Face Mask Room Air Room Air Oxygen Flow Rate 8 09/19/23 15:30 09/19/23 16:55 09/19/23 17:10 Temperature 35.8 C L 35.6 C L Pulse Rate 78 76 69 Respiratory Rate 16 18 20 Blood Pressure 142/73 H 159/72 H 156/72 H Pulse Oximetry 96 90 94 Oxygen Delivery Room Air Oxygen Flow Rate 09/19/23 17:40 09/19/23 18:40 09/19/23 16:49 Temperature 35.8 C L 35.9 C L Pulse Rate 66 87 Respiratory Rate 20 18 Blood Pressure 173/72 H 155/62 H Pulse Oximetry 95 95 Oxygen Delivery Room Air Oxygen Flow Rate 09/19/23 20:00 09/19/23 20:37 09/19/23 20:54 Temperature Pulse Rate 82 75 Respiratory Rate 18 Blood Pressure Pulse Oximetry Oxygen Delivery Room Air Oxygen Flow Rate 09/19/23 20:40 09/20/23 00:46 09/20/23 04:30 Temperature 36.9 C 37.1 C 37.4 C Pulse Rate 75 92 88 Respiratory Rate 20 16 16 Blood Pressure 169/91 H 162/82 H 150/83 H Pulse Oximetry 97 95 97 Oxygen Delivery Oxygen Flow Rate 09/20/23 08:00 09/20/23 09:07 Temperature 36.5 C Pulse Rate 71 71 Respiratory Rate 16 Blood Pressure 152/69 H Pulse Oximetry 95 Oxygen Delivery Oxygen Flow Rate Intake/Output Intake/Output: Intake & Output 09/17/23 09/18/23 09/19/23 09/20/23 23:59 23:59 23:59 23:59 Intake Total 168 1756 Output Total 1275 200 Balance -1107 1556 Meds/Results Medications: Active Medications Generic Name Dose Route Start Last Admin Trade Name Freq PRN Reason Stop Dose Admin Acetaminophen 500 mg 09/19/23 16:37 09/19/23 17:20 Acetaminophen 500 M
--- NOTE | 2023-09-20 14:46 | WPDANESPN ---
Anes - Prog Note Post-Op Date/Time: 09/20/23 14:46 Cardiovascular status: normal Respiratory status: normal Airway patency: baseline Mental status: baseline Post-Op hydration status: normal Vital Signs: Last Vital Signs Temp 36.3 C L 09/20/23 12:00 Pulse 64 09/20/23 12:00 Resp 16 09/20/23 12:00 BP 138/64 09/20/23 12:00 Pulse Ox 96 09/20/23 12:00 O2 Del Method Room Air 09/19/23 20:00 O2 Flow Rate 8 09/19/23 15:48 Pain Score (VAS): 05/04 I/O: Intake & Output 09/19/23 09/20/23 09/20/23 23:59 07:59 15:59 Intake Total 118 1400 596 Output Total 1275 200 Balance -1157 1200 596 Laboratory Tests 09/20/23 05:35 09/20/23 05:35 09/20/23 05:35 WBC 19.1 H RBC 3.83 L Hgb 12.5 L Hct 37.0 L MCV 96.6 MCH 32.6 MCHC 33.8 RDW 14.2 Plt Count 266 MPV 10.7 H Sodium 136 L Potassium 4.5 Chloride 104 Carbon Dioxide 26 Anion Gap 6 BUN 26 H Creatinine 1.60 H Estim Creat Clear Calc 38 Estimated GFR 42 L Glucose 125 H Calcium 8.8 Post-procedural complaints: none Patient Feedback: Patient satisfied with anesthetic care.
[2023-09-20] MEDS: ACETAMINOPHEN 500 MG TABLET PO (16:36)
[2023-09-20] MEDS: traZODone HCL 50 MG TABLET PO (20:17)
[2023-09-20] MEDS: SENNA/DOCUSATE SODIUM TABLET 2 TAB PO (20:17)
[2023-09-21 05:00] VITALS: BP 140/70; PULSE 66; RESP 18; TEMP 36.2; O2SAT 97
[2023-09-21 06:41] LABS: Hematocrit 33.4 % (42.0-52.0); Mean Corpuscular HGB Conc 32.9 g/dl (32-36); Mean Corpuscular Volume 97.1 fl (80-100); Mean Platelet Volume 10.7 fl (7.4-10.4); Platelet Count Result 236 k/mm3 (150-375); Red Blood Count 3.44 M/mm3 (4.6-6.20); Red Cell Distribution Width 14.2 % (11.5-14.5); White Blood Count 10.1 K/mm3 (4.5-10.0)
[2023-09-21 06:42] LABS: Anion Gap 6 mmol/L (4-12); Blood Urea Nitrogen 31 mg/dL (9-20); Calcium 8.6 mg/dL (8.4-10.2); Carbon Dioxide 27 mmol/L (22-30); Chloride 102 mmol/L (98-107); Estimated CRCL calculation 38 ml/min; Estimated Glomerular Filt Rate 42; Glucose 95 mg/dL (65-110); Potassium 4.2 mmol/L (3.4-5.0); Sodium 135 mmol/L (137-145)
[2023-09-21] MEDS: FLUTICASONE/SALMETEROL 115-21 MCG INHALER 1 PUFF 2 PUFF INHALATION (08:28)
[2023-09-21 08:29] VITALS: O2SAT 96
[2023-09-21] MEDS: LORATADINE 10 MG TABLET PO (08:34)
[2023-09-21] MEDS: PANTOPRAZOLE 40 MG TABLET PO (08:34)
[2023-09-21] MEDS: ATORVASTATIN 10 MG TABLET PO (08:34)
[2023-09-21] MEDS: MONTELUKAST SODIUM 10 MG TABLET PO (08:34)
[2023-09-21] MEDS: allopurinoL 300 MG TABLET BY MOUTH (08:34)
[2023-09-21 08:35] VITALS: PULSE 68
[2023-09-21] MEDS: amLODIPine BESYLATE 2.5 MG TABLET BY MOUTH (08:35)
[2023-09-21] MEDS: LOSARTAN POTASSIUM 100 MG TABLET BY MOUTH (08:35)
[2023-09-21] MEDS: polyethylene glycoL 3350 17 GM POWD.PACK PO (08:35)
[2023-09-21] MEDS: carvediloL 25 MG TABLET PO (08:35)
[2023-09-21] MEDS: ENOXAPARIN 30 MG/0.3 ML SYRINGE SUB-Q (08:35)
--- NOTE | 2023-09-21 11:16 | PM.DS ---
DS: Admitting Diagnosis Discharge Date September 21, 2023 Admitting Diagnosis GERD refractory to medical management and hiatal hernia DS: Discharge Diagnosis Discharge Diagnosis (1) Hiatal hernia: Code(s): K44.9 - Diaphragmatic hernia without obstruction or gangrene Status: Chronic (2) Gastro-esophageal reflux disease without esophagitis: Code(s): K21.9 - Gastro-esophageal reflux disease without esophagitis Status: Chronic DS: Summary Hospital Course Reason for hospitalization: Status post laparoscopic Bunny fundoplication Hospital Course: Patient came [facility] on September 19, 2023 when he went to the operating room where he underwent an uncomplicated laparoscopic Bunny fundoplication by Dr. Arias. Postoperatively his course recovery was uneventful and he was transferred to the surgical floor. He did have some chest pressure and discomfort the day of surgery on the floor for which he was just monitored. Is expect he may have this feeling after the surgery. He was advanced to clear liquid diet the next day which he tolerated well. On the day of discharge to have tolerated the a low-fiber diet without difficulty and was not needing any pain medications. He is ambulating well this 1 to be discharged home. I examined his abdomen in the incisions were healing well without any wound complications. His abdomen was benign. He was discharged home in improved condition. Status at Discharge Functional status at discharge: independent ambulation Overall status at discharge: patient is back to baseline Time Spent with Patient Time attestation: Total time spent providing and/or coordinating discharge services: Time spent: Less than 30 minutes Exam GI: Other: Abdomen is soft and nondistended. Port sites are healing well. Small amount of bruising but no redness or any drainage. Expected mild tenderness around each port site. Otherwise abdomen exam is benign. DS: Data Data Completed and Pending Labs on day of discharge: Labs from last 24 hours 09/21/23 06:08 WBC 10.1 H RBC 3.44 L Hgb 11.0 L Hct 33.4 L MCV 97.1 MCH 32.0 MCHC 32.9 RDW 14.2 Plt Count 236 MPV 10.7 H Sodium 135 L Potassium 4.2 Chloride 102 Carbon Dioxide 27 Anion Gap 6 BUN 31 H Creatinine 1.60 H Estim Creat Clear Calc 38 Estimated GFR 42 L Glucose 95 Calcium 8.6 Discharge Plan Discharge Patient Disposition: Home, Self-Care Discharge Instructions: Ambulate 3-4 x per day and as tolerated. No lifting over 15 lbs. May bathe or shower. Wash over incisions with soap and water. Stairs are OK. May drive a car in 3 days. Eat or drink very slowly. Take very small bites and chew food well. Wait between bites 30-[address] Ortiz office for follow-up appointment if one is not already scheduled. Continue to take pantoprazole 40 mg daily until seen in Dr. Ortiz office. Stand Alone Forms: General Discharge Instructions Follow-up/Referrals: Danielito Arias MD [Physician] - 2 Weeks (Call for appointment unless one has already been made.) Discharge Orders: Discharge Order (Routine); Ordered 09/21/23 Ordered By: Marco Ray Discharge Medications: New trazodone 50 mg Tablet 50 mg PO HS PRN (Reason: Insomnia) Qty: 20 0RF polyethylene glycol 3350 [Miralax] 17 gram Powder In Packet 17 g PO QAM Qty: 10 0RF sennosides-docusate sodium [Senokot-S] 8.6-50 mg Tablet 2 tab PO HS Qty: 10 0RF oxycodone-acetaminophen 5-325 mg tablet 0.5 - 1 tablet PO Q12H PRN (Reason: pain) 3 Days Qty: 6 0RF ibuprofen 600 mg tablet 600 mg PO Q6H PRN (Reason: pain) Qty: 14 0RF Continued colchicine 0.6 mg capsule 0.6 mg PO .PRN PRN (Reason: GOUT) simethicone [Gas Relief (simethicone)] 80 mg tablet,chewable 80 mg PO QID PRN (Reason: Gastrointestinal Spasms Or Cramping) Rx Instructions: after meals albuterol sulfate 90 mcg/actuation HF
== END 2023-09-21 12:06 | disposition home or self-care (01) ==
LOC: ANHSURGERY 09:59 → ANH3MEDSUR 16:54
PROVIDERS: PCP Family Medicine Adolescent Medicine; Visit Provider Surgery
PROC: 0DV44ZZ Restriction of Esophagogastric Junction, Percutaneous Endoscopic Approach (ICD-10-PCS; CPT 43281; principal; 2023-09-19 12:00)
DX: K44.9 Diaphragmatic hernia without obstruction or gangrene (principal); K21.9 Gastro-esophageal reflux disease without esophagitis; J45.909 Unspecified asthma, uncomplicated; I12.9 Hypertensive chronic kidney disease with stage 1 through stage 4 chronic kidney disease, or unspecified chronic kidney disease; N18.32 Chronic kidney disease, stage 3b; G47.33 Obstructive sleep apnea (adult) (pediatric); F41.1 Generalized anxiety disorder; M10.9 Gout, unspecified; Z79.51 Long term (current) use of inhaled steroids; Z98.890 Other specified postprocedural states; Z87.891 Personal history of nicotine dependence; Z80.0 Family history of malignant neoplasm of digestive organs; Z80.42 Family history of malignant neoplasm of prostate; Z82.49 Family history of ischemic heart disease and other diseases of the circulatory system
CPT/HCPCS: 43281; 36415; 71046; 80048; 85025; 85027; 85610; 85730; 86850; 86900; 86901; 93005; 94640; A9270; J0690; J1100; J1650; J2405; J2704; J3010; J7120

== ENCOUNTER 2023-10-20 00:09 | Emergency (ER) | payer MEDICARE, SELFPAY ==
[2023-10-20] VITALS (10 sets, daily range): BP systolic 110–177; BP diastolic 70–87; PULSE 51–62; RESP 11–19; TEMP 36.7; O2SAT 97–100
--- NOTE | ~2023-10-20 | XR_ITS ---
EXAMINATION: XR chest 1V portable DATE: 10/20/2023 01:07 INDICATION: Hypoglycemia. TECHNIQUE: A single frontal view of the chest was obtained. COMPARISON: Chest 2 views 09/11/2023 FINDINGS: There is mild scarring in left upper lobe. There is mild atelectasis versus scarring in the lower lung zones. A calcified left lung nodule and calcified left hilar and mediastinal lymph nodes are consistent with old granulomatous disease. No pleural effusion or pneumothorax. The heart size is normal. IMPRESSION: 1. Mild scarring in left upper lobe and mild atelectasis versus scarring in the lower lung zones. Reviewed, dictated and finalized at location E.
--- NOTE | 2023-10-20 00:14 | ECG_ITS ---
Test Date: 2023-10-20 00:16:31 Measurements Intervals [place] Rate: 54 P: 33 WA: 201 QRS: 0 QRSD: 91 T: 16 QT: 435 QTc: 414 Interpretive Statements SINUS BRADYCARDIA BORDERLINE AV CONDUCTION DELAY VOLTAGE CRITERIA FOR LVH CONSIDER INFERIOR INFARCT, AGE INDETERMINATE BASELINE ARTIFACT- I, II, AVR ABNORMAL ECG Compared to ECG 09/11/2023 15:09:49 HEART RATE HAS DECREASED Electronically Signed On 10-20-2023 07:54:26 CDT by Rogers Skelton D.O.
[2023-10-20 00:17] LABS: Glucose Point of Care 139 mg/dl (65-105)
--- NOTE | 2023-10-20 00:17 | ED.RECABL ---
HPI - Recheck/Abnormal Lab/Rx General Chief Complaint: Recheck/Abnormal Lab/Rx Stated Complaint: altered mental status Source: patient Mode of arrival: ambulatory Limitations: no limitations History of Present Illness HPI narrative: Patient was in his baseline state of health earlier tonight having read his Bible his then noticed that he seemed to be less responsive, out of it and clammy for which she called 911. He was found have a blood glucose of 21 mg/dL for which he was given 15 g oral given that he was alert and oriented x2 and could swallow. They also gave 1 dose of glucagon intramuscular. Patient denies any chest pain, shortness of breath, fevers, chills, cough, diarrhea, vomiting, or nausea. No history diabetes mellitus. No history of liver or kidney issues. Not on any diabetic medications for other etiology. He denies drinking alcohol. He denies taking acetaminophen or being on a beta-juan or CARON-inhibitor. Patient undergone hiatal hernia surgery a month ago. He had had 1 similar episode recently previously 2.5; his primary care physician Dr. Corona had ordered a carotid Doppler. Related Data Home Medications Medication Instructions Recorded Confirmed albuterol sulfate 90 mcg/actuation 2 puff inhalation Q4H PRN 06/12/21 10/23/23 aerosol inhaler Shortness Of Breath colchicine 0.6 mg capsule 0.6 mg PO .PRN PRN GOUT 07/12/21 10/23/23 Daily Fiber 1 tablet PO DAILY 10/10/21 10/23/23 cetirizine 10 mg tablet 10 mg PO DAILY 10/10/21 10/23/23 cholecalciferol (vitamin D3) 125 125 mcg PO 2XW 10/10/21 10/23/23 mcg (5,000 unit) tablet (Vitamin D3) multivit,Ca,ppuh-RX-vmyqhmpd-lutn 1 tablet PO DAILY 10/10/21 10/23/23 18 mg-500 mcg-300 mcg-250 mcg tablet budesonide-formoterol HFA 160 2 puff inhalation BID 05/01/23 10/23/23 mcg-4.5 mcg/actuation aerosol inhaler (Symbicort) diclofenac sodium 75 mg 75 mg PO BID pain 09/11/23 10/23/23 tablet,delayed release Allergies Allergy/AdvReac Type Severity Reaction Status Date / Time lisinopril AdvReac Intermediate Cough Verified 10/23/23 09:24 PMFSH Past Medical History Medical History (Updated 10/23/23 @ 10:07 by Kenny Pablo MD) Arthritis of ankle, right, degenerative Asthma Belching Fracture of triquetral bone of left wrist Hiatal hernia Normal colonoscopy 2010 Surgical History Surgical History History of bladder surgery History of Bunny fundoplication (08/2023) laparoscopic 09/19/23 Family History Family History Father Malignant neoplasm of prostate Carcinoma of colon Colon polyp Heart disease Hypertension Other Asthma Social History Social History Smoking packs per day: 0.5 Smoking cigarettes per day: 10.0 Years smoked: 6 Smoking pack-years: 3.00 Smoking status: Former smoker Second hand tobacco smoke exposure: No Alcohol intake: never Substance use: never Substance use type: does not use Do You Feel Safe in your Home?: Yes Lack of Transportation: No Lack of Food: Never True Current Housing: I Have Housing Concerned About Future Housing: No Difficulty Paying Gas/Electric Bills: No Difficulty Paying for Meds: No Currently Unemployed: No Education: High School Diploma/GED Difficulty w/ Childcare or Family Care: No Living arrangements: with family Additional living arrangements comments: Occupation/Education: retired Gender identity (if verbalized by the patient): Male Sexual Orientation (if Verbalized by the Patient): Straight or Heterosexual Spiritual care concerns: No Agree to blood products: Yes Exam Narrative: GENERAL: Well-appearing, well-nourished, and in no acute distress. HEAD: Normocephalic, atraumatic. EYES: Non injected, non icteric ENT: Nares clear, no rhinorrhe
[2023-10-20 00:25] LABS: Basophils Percent Auto 0.2 % (0.2-1.2); Eosinophils Absolute Auto 0.4 K/mm3 (0-0.3); Eosinophils Percent Auto 5.1 % (0-4.4); Hemoglobin 11.9 g/dL (14.0-18.0); Immature Granulocyte Absolute 0.02 K/mm3 (0.00-0.031); Immature Granulocyte Percent A 0.2 % (0-0.5); Lymphocytes Absolute Auto 2.32 K/mm3 (0.9-3.2); Lymphocytes Percent Auto 28.8 % (18.3-44.2); Mean Corpuscular Hemoglobin 33.1 pg (26-34); Mean Corpuscular Volume 97.5 fl (80-100); Mean Platelet Volume 11.1 fl (7.4-10.4); Monocytes Absolute Auto 1.1 K/mm3 (0.1-0.6); Monocytes Percent Auto 13.3 % (2.6-8.5); Neutrophils Absolute Auto 4.2 K/mm3 (1.3-6.7); Neutrophils Percent Auto 52.4 % (45.5-73.1); Platelet Count Result 252 k/mm3 (150-375); Red Blood Count 3.59 M/mm3 (4.6-6.20); Red Cell Distribution Width 14.4 % (11.5-14.5); White Blood Count 8.1 K/mm3 (4.5-10.0)
[2023-10-20 00:37] LABS: INR 1.1; Prothrombin Time 14.9 Seconds (11.1-14.7)
[2023-10-20 00:38] LABS: Alanine Aminotransferase 13 U/L (6-50); Albumin Level 3.9 g/dL (3.5-5.1); Alkaline Phosphatase 91 U/L (38-126); Anion Gap 9 mmol/L (4-12); Aspartate Amino Transferase 19 U/L (17-59); Bilirubin,Total 0.5 mg/dL (0.2-1.3); Blood Urea Nitrogen 32 mg/dL (9-20); Calcium 9.2 mg/dL (8.4-10.2); Carbon Dioxide 24 mmol/L (22-30); Chloride 107 mmol/L (98-107); Estimated CRCL calculation 41 ml/min; Estimated Glomerular Filt Rate 45; Glucose 71 mg/dL (65-110); Sodium 140 mmol/L (137-145)
[2023-10-20 00:39] LABS: Ethanol < 10 mg/dL (<10)
[2023-10-20 01:02] LABS: Glucose Point of Care 131 mg/dl (65-105)
[2023-10-20 01:14] LABS: Troponin I < 0.012 ng/mL (0.000-0.034)
[2023-10-20 02:21] LABS: Glucose Point of Care 130 mg/dl (65-105)
[2023-10-20 03:06] LABS: Influenza A QL RT-PCR Negative (Negative); Influenza B QL RT-PCR Negative (Negative); RSV RNA, RT-PCR Negative (Negative); SARS-CoV-2 RNA PCR Negative (Negative)
--- NOTE | 2023-10-20 04:46 | PC.NURSE ---
pt is able to tolerate sandwich/ chips/ and water.
[2023-10-20 05:40] LABS: Appearance Urine Clear (Clear); Bilirubin Urine Negative (Negative); Blood Urine Negative (Negative); Color Urine Yellow (Yellow); Glucose Urine UA Negative (Negative); Ketones Urine Trace mg/dL (Negative); Leukocyte Esterase Ur Negative LEU/UL (Negative); Nitrate Urine Negative (Negative); Protein Urine Negative (Negative); Specific Grav Ur 1.013 (1.001-1.035); Urobilinogen Urine 0.2 mg/dL (<2.0)
[2023-10-20 05:49] LABS: Add Urine Microscopic? NO
== END 2023-10-20 06:17 | disposition home or self-care (01) ==
PROVIDERS: Emergency Provider Student in an Organized Health Care Education/Training Program; PCP Family Medicine Adolescent Medicine
DX: E16.2 Hypoglycemia, unspecified (principal); N18.9 Chronic kidney disease, unspecified; D64.9 Anemia, unspecified; J45.909 Unspecified asthma, uncomplicated; M19.071 Primary osteoarthritis, right ankle and foot; Z87.891 Personal history of nicotine dependence; Z79.899 Other long term (current) drug therapy; R00.1 Bradycardia, unspecified; R94.31 Abnormal electrocardiogram [ECG] [EKG]
CPT/HCPCS: 36415; 71045; 80053; 80307; 81003; 82948; 84484; 85025; 85610; 85730; 87637; 93005; 99284

== ENCOUNTER 2024-06-30 10:43 | Outpatient (CLI) | payer MEDICARE, SELFPAY ==
[2024-06-30 11:17] LABS: Basophils Percent Auto 0.6 % (0.2-1.2); Eosinophils Absolute Auto 0.4 K/mm3 (0-0.3); Eosinophils Percent Auto 6.1 % (0-4.4); Hematocrit 34.5 % (42.0-52.0); Hemoglobin 11.1 g/dL (14.0-18.0); Immature Granulocyte Absolute 0.01 K/mm3 (0.00-0.031); Immature Granulocyte Percent A 0.2 % (0-0.5); Lymphocytes Absolute Auto 1.68 K/mm3 (0.9-3.2); Lymphocytes Percent Auto 27.2 % (18.3-44.2); Mean Corpuscular HGB Conc 32.2 g/dl (32-36); Mean Corpuscular Hemoglobin 31.9 pg (26-34); Mean Corpuscular Volume 99.1 fl (80-100); Monocytes Absolute Auto 0.6 K/mm3 (0.1-0.6); Monocytes Percent Auto 10.2 % (2.6-8.5); Neutrophils Absolute Auto 3.4 K/mm3 (1.3-6.7); Neutrophils Percent Auto 55.7 % (45.5-73.1); Platelet Count Result 246 k/mm3 (150-375); Red Blood Count 3.48 M/mm3 (4.6-6.20); Red Cell Distribution Width 14.7 % (11.5-14.5); White Blood Count 6.2 K/mm3 (4.5-10.0)
[2024-06-30 11:35] LABS: Anion Gap 8 mmol/L (4-12); Blood Urea Nitrogen 44 mg/dL (9-20); Calcium 9.1 mg/dL (8.4-10.2); Carbon Dioxide 24 mmol/L (22-30); Chloride 108 mmol/L (98-107); Estimated Glomerular Filt Rate 42; Glucose 37 mg/dL (65-110); Potassium 4.9 mmol/L (3.4-5.0); Sodium 140 mmol/L (137-145)
[2024-06-30 11:45] LABS: INR 1.1; Prothrombin Time 14.7 Seconds (11.1-14.7)
[2024-06-30 11:46] LABS: Partial Thromboplastin Time 30.5 Seconds (22.3-36.8)
--- OUTSIDE RECORDS SUMMARY | 2024-06-30 12:11 | XMS_ITS | Clinical Summary ---
Author Organization [facility] [employer] Address [address] [place] [address] Care Team Providers Care X Ray Technician Name Role Phone Kenny Pablo MD Primary Care Provider + Source Comments [facility] [employer],non-owned Affiliates and Associated Physician Practices is amultiple site organization consisting of ambulatory clinics and hospital sitesin [place], [place], [place] and [place]. This disclosure is being madepursuant to the Care Everywhere program and may not contain all information available regarding this patient. Last updated 17.[facility] [employer] Allergies Active Allergy Reactions Criticality Noted Date Comments Lisinopril Cough 07/15/2023 Medications * Be aware that medications may not be up to date on this document. Alwaysverify current medications with the patient. Medication Sig Dispensed Refills Start Date End Date Status fluticasone-salmeter ol (ADVAIR) 250-50 MCG/DOSE inhaler Inhale 1 (one) puff by mouth 2 times daily Active triamcinolone (NASACORT AQ) 55 MCG/ACT nasal inhaler Maribel 1 (one) spray into each nostril once daily Active valsartan-hydrochlor othiazide (DIOVAN HCT) 160-25 MG tablet Take 1 (one) tablet by mouth once daily Active desvenlafaxime SR 24hr (PRISTIQ) 50 MG tablet Take by mouth daily. Acti ve cetirizine (ZYRTEC) 10 MG chew tablet Take 1 (one) tablet by mouth once daily Active montelukast (Singulair) 10 MG tablet Take 1 (one) tablet by mouth at bedtime Active allopurinol (Zyloprim) 300 MG tablet Take 1 (one) tablet by mouth once daily 05/30/2023 Active amLODIPine (Norvasc) 2.5 MG tablet Take 1 (one) tablet by mouth once daily 04/16/2023 Active atorvastatin (Lipitor) 20 MG tablet 10 MG ORALLY DAILY 05/30/2023 Active carvedilol (Coreg) 25 MG tablet 25 MG ORALLY TWICE A DAY MUST ADMINISTER WITH A MEAL/FOOD 04/05/2023 Active diclofenac sodium EC (Voltaren) 75 MG tablet 75 MG ORALLY TWICE A DAY NEEDED FOR PAIN 06/05/2023 Active levoFLOXacin (Levaquin) 500 MG tablet Take 1 (one) tablet by mouth once daily 01/30/2023 Active losartan (Cozaar) 100 MG tablet Take 1 (one) tablet by mouth once daily 06/04/2023 Active pantoprazole EC (Protonix) 40 MG tablet Take 1 (one) tablet by mouth 2 times daily 05/01/2023 Active Social History Tobacco Use Types Packs/Day Years Used Date Smoking Tobacco: Never Smokeless Tobacco: Never Tobacco Cessation:Counseling Given: Not Answered Alcohol Use Standard Drinks/Week Comments No 0 (1 standard drink = 0.6 oz pur e alcohol) Sex and Gender Information Value Date Recorded Sex Assigned at Not on file Gender Identity Not on file Sexual Orientation Not on file Plan of Treatment Health Maintenance Due Date Last Done Comments HEPATITIS C SCREENING 09/12/1963 DTAP/TDAP/TD VACCINES (1 - Tdap) 1964 PNEUMOCOCCAL VACCINE 50+ (1 of 1 - PCV) 09/17/1995 ZOSTER VACCINE (1 of 2) 09/17/1995 Respiratory Syncytial Virus (RSV) Vaccine Pt: or over 60 yrs (1 - 1-dose 75+ series) 2020 COVID-19 VACCINE ( - 2023-2 5 season) 2023 DEPRESSION SCREENING 03/25/2024 MEDICARE AWV CALENDAR YEAR 2024 INFLUENZA VACCINE (Season Ended) 2024 HEPATITIS B VACCINE Aged Out No longe r eligible based on patient's age to complete this topic HIB VACCINE Aged Out No longer eligi ble based on patient's age to complete this topic HPV VACCINE Aged Out No longer eligi ble based on patient's age to complete this topic MENINGOCOCCAL (Group B) VACC INE SHARED DECISION-MAKING Aged Out No longer eligibl e based on patient's age to complete this topic MENINGOCOCCAL GROUPS A/C/Y/W VACCINE Aged Out No longer eligible b ased on patient's age to complete this topic Care Teams X Ray Technician Relationship Specialty Start Date End Date Kenny Pablo MD [address] [place] [id number] PCP - General 11/04/09
== END 2024-06-30 10:44 | disposition home or self-care (01) ==
LOC: ANHSURGERY 10:46
PROVIDERS: Anesthesiology; PCP Family Medicine Adolescent Medicine; Visit Provider Surgery
DX: Z01.812 Encounter for preprocedural laboratory examination (principal); K40.90 Unilateral inguinal hernia, without obstruction or gangrene, not specified as recurrent; N18.32 Chronic kidney disease, stage 3b
CPT/HCPCS: 36415; 80048; 85025; 85610; 85730; 86850; 86900; 86901

== ENCOUNTER 2024-07-09 00:18 | Day surgery (SDC) | payer MEDICARE, SELFPAY ==
[2024-06-29 15:42] VITALS: BMI 24.5
--- NOTE | 2024-06-29 16:00 | PC.NURSE ---
Addendum entered by Dawna Park RN 07/06/24 15:00: PATIENT AND CALLED TO REPORT THAT JARDIANCE WAS DISCONTINUED ON Saturday07/03/24 R/T LOW BLOOD SUGARS. BLOOD SUGAR READINGS HAVE IMPROVED, ALTHOUGH 2 LOW READINGS OF 52 AND 41 OCCURRED IN LAST FEW DAYS. PT IS CALLING DR MURPHY TO TRY TO SEE HIM PRIOR TO SURGERY ON Saturday07/09/24. PT HAS AN APPOINTMENT WITH A [facility] HOUS[facility] DEVELOPMENT SPECIALIST AT END OF JULY 2024. Original Note: Report to the Outpatient Waiting Room, entrance under the green pavilion located off [facility], at time __10:00AM on date ___07/09/24____. Planned Procedure Time: __12:00PM .? Time changes happen often and if your time is changed the preop area will call you the afternoon before. - You and your visitor will be asked to self-screen and do not enter if you have any COVID symptoms. Please call surgeon if you need to reschedule. - A mask is optional within the hospital at this time. Patients may have clear liquids (water, carbonated beverages, clear teas, apple juice) until 3 hours prior to surgery with a maximum of 20 ounces. - No food from midnight until time of surgery and no smoking, or chewing tobacco (or any form of nicotine). No chewing gum, candy or mints. Take only the following medications with a SIP of water on the morning of surgery: ____AMLODIPINE, CARVEDILOL, SYMBICORT INHALER. MAY USE ALBUTEROL INHALER NEEDED. DO NOT STOP ANY OF YOUR OTHER PRESCRIPTION MEDICATIONS PRIOR TO SURGERY EXCEPT THE FOLLOWING Hold all vitamins and supplements for 3 days per anesthesiologist- LAST DOSE 07/05/24. Medications to discontinue per physician HOLD NSAIDS PER DR MORA Date to take last dose Please no make-up, nail spanish, hairspray, perfume, deodorant, or body powder the day of surgery.? No jewelry (including any body piercings) or valuables the day of surgery, leave them at home.? Please take a shower or bath the night before, or the morning of, surgery with an antibacterial soap.? Wear comfortable, loose fitting clothing.? - Jewelry must be removed prior to entering the operating room.? Rings and piercings that are not removed may be cut off. - The hospital will not accept responsibility for valuables.? - Please leave all valuables, including medications, at home the day of surgery. If you are going home after surgery, a licensed trolley coach driver must drive you home.? - NO public transportation without another adult if you receive anesthesia. - We recommend that an adult stay with you for 24 hours following discharge. - We also recommend that you do not drive, make important decision, drink alcoholic beverages, or take any drugs that were not prescribed by your health care provider for at least 24 hours after your discharge time. Follow any additional instructions given to you from your surgeon. Telephone instructions given to ___PATIENT & WIFE and asked if any additional questions and then verbalized understanding. Patient advised to call surgeon office or pre surgery nurse liaison [phone] if any additional questions.
--- NOTE | 2024-07-07 19:49 | P.SS_ITS ---
Same Day Admit/Disch: HPI History of Present Illness Chief complaint: Right Ing Hernia Narrative: Selvin Orozco is a 78 year old male known to me from having laparoscopic Bunny fundoplication in August of 2023. He came to the office in April with a bulge in the right groin. He was found to have a reducible right inguinal hernia. It seems to be getting larger and is occasionally painful. He is taken to surgery now for robotic laparoscopic repair with mesh. [facility] Past Medical History Medical History Hiatal hernia Belching Fracture of triquetral bone of left wrist Normal colonoscopy 2010 Asthma Arthritis of ankle, right, degenerative Surgical History Surgical History History of Bunny fundoplication (08/2023) laparoscopic 09/19/23 History of bladder surgery Family History Family History Father Malignant neoplasm of prostate Carcinoma of colon Colon polyp Heart disease Hypertension Other Asthma Social History Social History Smoking packs per day: 0.5 Smoking cigarettes per day: 10.0 Years smoked: 16 Smoking pack-years: 8.00 Smoking status: Former smoker Tobacco type: cigarettes Second hand tobacco smoke exposure: No Smoking end date: 09/22/89 Alcohol intake: never Substance use: never Substance use type: does not use Do You Feel Safe in your Home?: Yes Lack of Transportation: No Lack of Food: Never True Current Housing: I Have Housing Concerned About Future Housing: No Difficulty Paying Gas/Electric Bills: No Difficulty Paying for Meds: No Currently Unemployed: No Education: High School Diploma/GED Difficulty w/ Childcare or Family Care: No Living arrangements: with family Additional living arrangements comments: Occupation/Education: retired Gender identity (if verbalized by the patient): Male Sexual Orientation (if Verbalized by the Patient): Straight or Heterosexual Spiritual care concerns: No Agree to blood products: Yes Same Day Admit/Disch: Med Pre-admit Medications Home Medications ?Medication ?Instructions ?Recorded ?Confirmed ?Type albuterol sulfate 90 mcg/actuation 2 puff inhalation Q4H PRN 06/12/21 07/09/24 History aerosol inhaler Shortness Of Breath colchicine 0.6 mg capsule 0.6 mg PO .PRN PRN GOUT 07/12/21 07/07/24 History cetirizine 10 mg tablet 10 mg PO DAILY 10/10/21 07/09/24 History cholecalciferol (vitamin D3) 125 125 mcg PO 3XW 10/10/21 07/09/24 History mcg (5,000 unit) tablet (Vitamin D3) multivit,Ca,rpcx-YG-mzubzvpe-lutn 1 tablet PO DAILY 10/10/21 07/09/24 History 18 mg-500 mcg-300 mcg-250 mcg tablet budesonide-formoterol HFA 160 2 puff inhalation BID 05/01/23 07/07/24 History mcg-4.5 mcg/actuation aerosol inhaler (Symbicort) montelukast 10 mg tablet 10 mg PO DAILY #90 tabs 01/07/24 07/07/24 Rx losartan 100 mg tablet See Rx Instructions .Route 02/14/24 07/07/24 Rx .COMPLEX #90 tabs carvedilol 25 mg tablet 25 mg PO BID #180 tabs 03/29/24 07/09/24 Rx diclofenac sodium 75 mg 75 mg PO BID #180 tabs 04/02/24 07/07/24 Rx tablet,delayed release atorvastatin 20 mg tablet 10 mg (1/2 x 20 mg) PO DAILY #45 06/22/24 07/09/24 Rx tabs allopurinol 300 mg tablet 300 mg PO DAILY 06/29/24 07/07/24 History amlodipine 5 mg tablet 5 mg PO QAM 06/29/24 07/09/24 History oxycodone-acetaminophen 5 mg-325 0.5 - 1 tablet PO Q4H PRN pain #10 07/09/24 Rx mg tablet (Percocet) tabs Review of Systems Review of Systems All systems reviewed & are unremarkable except as noted in HPI and below (HPI) Exam Const: General: comfortable, no acute distress, alert and awake HENMT: Head: normocephalic and atraumatic Mouth: Yes Normal oral and palatal mucosa present Eyes: Conjunctivae: conjunctivae normal Pupils: Equal, round and reactive pupils present EOM: EOMs intact bilaterally Neck: Neck: normal visual inspection, no lymphadenopathy and nontender Resp: Effort & Inspection: normal respiratory effort Auscultation: clear to auscultation bilaterally Cardio: Rate: regular rate Rhythm: regular rhythm Heart sounds: no gallops, no murmurs and no rubs GI: Inspection: non-distended GI Palp: Yes Soft to palpation, No Tenderness to palpation present (GI), No Hepatomegaly present and No Splenomegaly present : Male General Exam: Yes hernia (Right inguinal bulge, past SO backs triangle, reducible) Penis: Yes normal penis Scrotum: scrotum normal Testes: Testes normal Skin: Lesions: no lesions Rashes: no rashes Neuro: General: no focal motor deficits and CN's II-XI intact bilaterally Cranial nerves: Yes Equal, round and reactive pupils present, Yes Bilaterally intact EOM present, Yes facial symmetry and Yes Midline tongue present Speech: normal speech Motor exam (neuro): 5/5 motor strength present throughout and Motor abnormalities not present Extrem: General: no clubbing, cyanosis or edema and edema Psych: Affect: normal affect Thought process: Normal thought process present Insight: Good insight present (Psych) DS: Summary Time Spent with Patient Time attestation: Total time spent providing and/or coordinating discharge services: DS: Admitting Diagnosis Discharge Date 07/09/2024 Admitting Diagnosis * Large reducible right inguinal hernia-after discussion, plan to proceed with robotic laparoscopic right inguinal hernia with mesh. The procedure, risks, benefits, alternatives have been discussed. All questions were answered. The usual recovery time and use of mesh was discussed. He understands and agrees to go ahead. * Gout * Essential hypertension * Asthma * History laparoscopic Bunny fundoplication DS: Discharge Diagnosis Discharge Diagnosis (1) Right inguinal hernia: Code(s): K40.90 - Unilateral inguinal hernia, without obstruction or gangrene, not specified as recurrent Status: Chronic Assessment and Plan: Robotic laparoscopic repair performed 07/09/[address] Arias Discharge Plan Discharge Patient Disposition: Home Discharge Instructions: 1. May shower the day after surgery over incisions. 2. Call office for: -Wound increasingly painful or bleeding -Vomiting -Fever of greater than 101 degrees 3. Wear scrotal support at all times except when showering or sleeping for 1 week. Ice to groin for 8 hours: 30 minutes on, 30 minutes off. Fresh ice every 2 hours 4. If no bowel movement for three days, take 1 oz. (30 ml) Milk of Magnesia, if no results, take Fleets enema. 5. No heavy lifting > 15-20 pounds for 2 weeks. 6. No driving for 3 days or while taking narcotic pain medications. 7. Up walking 10-30 minutes three times per day. 8. Resume previous home medications. 9. Follow-up 10-14 days in office for wound check or as previously scheduled. 10. Oral pain medications prescription to be sent home with patient. 11. NUTRITION: Start out by drinking fluids and increase your diet as tolerated. If you experience nausea, try dry toast, crackers, and 7-UP. If nausea or vomiting persists, contact your surgeon?s office. Patient Language: Maltese Stand Alone Forms: General Discharge Instructions Follow-up/Referrals: Danielito Arias MD [Physician] - 3 Weeks Discharge Medications: New oxycodone-acetaminophen [Percocet] 5-325 mg tablet 0.5 - 1 tablet PO Q4H PRN (Reason: pain) Qty: 10 0RF Continued colchicine 0.6 mg capsule 0.6 mg PO .PRN PRN (Reason: GOUT) albuterol sulfate 90 mcg/actuation HFA aerosol inhaler 2 puff inhalation Q4H PRN (Reason: Shortness Of Breath) budesonide-formoterol [Symbicort] 160-4.5 mcg/actuation HFA aerosol inhaler 2 puff inhalation BID diclofenac sodium 75 mg tablet,delayed release (DR/EC) 75 mg PO BID Qty: 180 3RF cetirizine 10 mg Tablet 10 mg PO DAILY multivit,Ca,ypse-KG-dbgmcq-lut 17-180-350-250 qi-sji-rrw-mcg Tablet 1 tablet PO DAILY cholecalciferol (vitamin D3) [Vitamin D3] 125 mcg (5,000 unit) Tablet 125 mcg PO 3XW Rx Instructions: Takes on Mondays and Saturday amlodipine 5 mg tablet 5 mg PO QAM allopurinol 300 mg tablet 300 mg PO DAILY Rx Instructions: TAKE 1 TABLET BY MOUTH BID montelukast 10 mg tablet 10 mg PO DAILY Qty: 90 2RF losartan 100 mg tablet See Rx Instructions .ROUTE .COMPLEX Qty: 90 2RF Dose Instruction: TAKE 1 TABLET BY MOUTH EVERY DAY Patient Comments: TAKING HS PER [facility] DOCTOR INSTRUCTION Rx Instructions: TAKE 1 TABLET BY MOUTH EVERY DAY IN MORNING carvedilol 25 mg tablet 25 mg PO BID Qty: 180 2RF Rx Instructions: must administer with a meal/food atorvastatin 20 mg tablet 10 mg PO DAILY Qty: 45 2RF
[2024-07-09] VITALS (8 sets, daily range): BP systolic 145–183; BP diastolic 65–80; PULSE 55–73; RESP 12–20; TEMP 36.1–36.4; O2SAT 98–100
--- OUTSIDE RECORDS SUMMARY | 2024-07-09 00:21 | XMS_ITS | Clinical Summary ---
Author Organization [facility] Address [address] [place] [address] Care Team Providers [employer] Editorial Producer Name Role Phone Kenny Pablo MD Primary Care Provider + Source Comments [facility],non-owned Affiliates and Associated Physician Practices is amultiple site organization consisting of ambulatory clinics and hospital sitesin [place], [place], [place] and [place]. This disclosure is being madepursuant to the Care Everywhere program and may not contain all information available regarding this patient. Last updated 17.[facility] Allergies Active Allergy Reactions Criticality Noted Date Comments Lisinopril Cough 07/15/2023 Medications * Be aware that medications may not be up to date on this document. Alwaysverify current medications with the patient. fluticasone-huey meterol (ADVAIR) 250-50 MCG/DOSE inhaler Inhale 1 (one) puff by mouth 2 times daily Active triamcinolone (NASACORT AQ) 55 MCG/ACT nasal inhaler Garfield 1 (one) spray into each nostril once daily Active valsartan-hydro chlorothiazide (DIOVAN HCT) 160-25 MG tablet Take 1 (one) tablet by mouth once daily Active desvenlafaxime SR 24hr (PRISTIQ) 50 MG tablet Take by mouth daily. Active cetirizine (ZYRTEC) 10 MG chew tablet Take 1 (one) tablet by mouth once daily Active montelukast (Singulair) 10 MG tablet Take 1 (one) tablet by mouth at bedtime Active allopurinol (Zyloprim) 300 MG tablet Take 1 (one) tablet by mouth once daily 4 Active amLODIPine (Norvasc) 2.5 MG tablet Take 1 (one) tablet by mouth once daily 4 Active atorvastatin (Lipitor) 20 MG tablet 10 MG ORALLY DAILY 4 Active carvedilol (Coreg) 25 MG tablet 25 MG ORALLY TWICE A DAY MUST ADMINISTER WITH A MEAL/FOOD 4 Active diclofenac sodium EC (Voltaren) 75 MG tablet 75 MG ORALLY TWICE A DAY NEEDED FOR PAIN 4 Active levoFLOXacin (Levaquin) 500 MG tablet Take 1 (one) tablet by mouth once daily 3 Active losartan (Cozaar) 100 MG tablet Take 1 (one) tablet by mouth once daily 4 Active pantoprazole EC (Protonix) 40 MG tablet Take 1 (one) tablet by mouth 2 times daily 4 Active Social History Tobacco Use Types Packs/Day Years Used Date Smoking Tobacco: Never Smokeless Tobacco: Never Tobacco Cessation:Counseling Given: Not Answered Alcohol Use Standard Drinks/Week Comments No 0 (1 standard drink = 0.6 oz pur e alcohol) Sex and Gender Information Value Date Recorded Sex Assigned at Not on file Legal Sex Male 9:10 AM [employer]ISH [employer]PRE[employer] Gender Identity Not on file Sexual Orientation [...] on patient's age to complete this topic Insurance [employer] MEDICARE ADV SELF PAY NO INSURANCE Member Subscriber Plan / Payer (Ef fective for All Dates) Name:Francisca Orozco Member ID:Not on file Relation to Subscriber:Not on file Name:FRANCISCA OROZCO Subscriber ID:Not on file (Home) Address: [address] [place] [address] Payer ID:Not on file Group ID:Not on file Type:Self Pay Address: [place], [place] A[employer]NA MEDICARE ADV SELF PAY NO INSURANCE Member Subscriber Plan / Payer (Ef fective for All Dates) Name:Francisca Orozco Member ID:Not on file Relation to Subscriber:Not on file Name:TOMIFRANCISCA STEPHENS Subscriber ID:Not on file (Home) Address: [address] [place] [address] Payer ID:Not on file Group ID:Not on file Type:Self Pay Address: [place], [place] [employer] MEDICARE ADV SELF PAY NO INSURANCE Member Subscriber Plan / Payer (Ef fective for All Dates) Name:Ernesto Francisca Navdeep Member ID:Not on file Relation to Subscriber:Not on file Name:ERNESTOFRANCISCA Subscriber ID:Not on file (Home) Address: [address] [place] [address] Payer ID:Not on file Group ID:Not on file Type:Self Pay Address: [place], [place] Care Teams International Editorial Producer Relationship Specialty Start Date End Date Kenny Pablo MD [address] [address] PCP - General 11/04/09
--- NOTE | 2024-07-09 10:46 | WPDANESEPPF ---
Anes - Initial Pre Proc Eval Procedure: Operation Date: 07/09/24 12:00 Proposed Procedures p Robotic Repair Right Inguinal Hernia with Mesh - Danielito Arias MD Date/Time: 07/09/24 10:46 Surgeon: Danielito Arias MD Pre Op Diagnosis: Right Ing Hernia Patient Data Age: 78 Gender: M Height: 1.83 m Weight: 82 kg Allergies Allergy/AdvReac Type Severity Reaction Status Date / Time lisinopril AdvReac Intermediate Cough Verified 07/07/24 15:52 Home Medications ?Medication ?Instructions ?Recorded ?Confirmed ?Type albuterol sulfate 90 mcg/actuation 2 puff inhalation Q4H PRN 06/12/21 07/07/24 History aerosol inhaler Shortness Of Breath colchicine 0.6 mg capsule 0.6 mg PO .PRN PRN GOUT 07/12/21 07/07/24 History cetirizine 10 mg tablet 10 mg PO DAILY 10/10/21 07/07/24 History cholecalciferol (vitamin D3) 125 125 mcg PO 3XW 10/10/21 07/07/24 History mcg (5,000 unit) tablet (Vitamin D3) multivit,Ca,jgnf-YT-kdntqbnr-lutn 1 tablet PO DAILY 10/10/21 07/07/24 History 18 mg-500 mcg-300 mcg-250 mcg tablet budesonide-formoterol HFA 160 2 puff inhalation BID 05/01/23 07/07/24 History mcg-4.5 mcg/actuation aerosol inhaler (Symbicort) montelukast 10 mg tablet 10 mg PO DAILY #90 tabs 01/07/24 07/07/24 Rx losartan 100 mg tablet See Rx Instructions .Route 02/14/24 07/07/24 Rx .COMPLEX #90 tabs carvedilol 25 mg tablet 25 mg PO BID #180 tabs 03/29/24 07/07/24 Rx diclofenac sodium 75 mg 75 mg PO BID #180 tabs 04/02/24 07/07/24 Rx tablet,delayed release atorvastatin 20 mg tablet 10 mg (1/2 x 20 mg) PO DAILY #45 06/22/24 07/07/24 Rx tabs allopurinol 300 mg tablet 300 mg PO DAILY 06/29/24 07/07/24 History amlodipine 5 mg tablet 5 mg PO QAM 06/29/24 07/07/24 History Patient hx anesthesia problems: none Family hx anesthesia problems: none Results Review: All pre-operative results and documents have been reviewed as part of the pre-operative evaluation. [facility] Past Medical History Medical History Hiatal hernia Belching Fracture of triquetral bone of left wrist Normal colonoscopy 2010 Asthma Arthritis of ankle, right, degenerative Surgical History Surgical History History of Bunny fundoplication (08/2023) laparoscopic 09/19/23 History of bladder surgery Family History Family History Father Malignant neoplasm of prostate Carcinoma of colon Colon polyp Heart disease Hypertension Other Asthma Social History Social History Smoking packs per day: 0.5 Smoking cigarettes per day: 10.0 Years smoked: 16 Smoking pack-years: 8.00 Smoking status: Former smoker Tobacco type: cigarettes Second hand tobacco smoke exposure: No Smoking end date: 09/22/89 Alcohol intake: never Substance use: never Substance use type: does not use Do You Feel Safe in your Home?: Yes Lack of Transportation: No Lack of Food: Never True Current Housing: I Have Housing Concerned About Future Housing: No Difficulty Paying Gas/Electric Bills: No Difficulty Paying for Meds: No Currently Unemployed: No Education: High School Diploma/GED Difficulty w/ Childcare or Family Care: No Living arrangements: with family Additional living arrangements comments: Occupation/Education: retired Gender identity (if verbalized by the patient): Male Sexual Orientation (if Verbalized by the Patient): Straight or Heterosexual Spiritual care concerns: No Agree to blood products: Yes Anes - Eval Final PreProcedure Day of Procedure 07/09/24 10:46 Patient weight: normal Heart: regular rate and rhythm Lungs: clear to auscultation Airway: Mallampati scale class II Neurological: alert and oriented Last oral intake: >/= 8 hours ASA classification: III Emergent: no Anesthetic plan: proceed Anesthesia type and monitoring: general ETT and standard monitoring Results Review: All pre-operative results and documents have been reviewed as part of the pre-operative evaluation. Informed Consent: The patient's anesthetic plan and its attendant risks and benefits were discussed with the patient/family/POA. Questions were solicited and answers provided to the satisfaction of the patient/family/POA.
[2024-07-09] MEDS: LACTATED RINGERS 1,000 ML 30 ML IV CONT ×2 (11:00→14:32)
[2024-07-09] MEDS: ACETAMINOPHEN 500 MG TABLET 1000 MG PO (11:00)
[2024-07-09] MEDS: KETOROLAC 15 MG/ML VIAL (*BKC) IV PUSH (11:00)
[2024-07-09 11:04] LABS: Glucose Point of Care 93 mg/dl (65-105)
--- NOTE | 2024-07-09 11:57 | WPDHPUPDATE1 ---
History and Physical Update Update Date/Time: 07/09/24 11:57 History and Physical has been reviewed, including an updated exam of the patient. There are NO changes in the patient's condition. Risks, benefits, and alternatives have been discussed and questions answered. Patient agrees to proceed with procedure.
[2024-07-09] MEDS: ceFAZolin 2 GM/D5W 50 ML 2 GM/50 ML BAG IVPB (12:15)
[2024-07-09] MEDS: BUPIVACAINE/EPINEPHRINE 0.5% 50 ML VIAL 30 ML INFILTRATE (12:56)
--- NOTE | 2024-07-09 14:50 | P.OP_ITS ---
Procedure Note - Detailed Date of Procedure 07/09/24 Pre-op Diagnosis Right Ing Hernia Post-op Diagnosis Same Procedure Performed Robotic laparoscopic repair right inguinal hernia with mesh Surgeon Danielito Arias MD Chalk Tester Ekaterina LOYA Anesthesia General and Local Indications Patient had noticed a right groin bulge in March. This is occasionally painful. He was seen in the office and found to have right inguinal hernia. He is taken to surgery now for robotic laparoscopic repair with mesh Findings Patient had both the large indirect hernia and a smaller direct inguinal hernia. There was small intestine in the indirect hernia but it was not incarcerated or obstructed. Description of Procedure Patient was taken to surgery and induced into general anesthesia. The abdomen is prepped and draped. Trocars were placed in the usual manner such that we had 3 8 mm robotic trocars in the upper abdomen. Ilioinguinal nerve block was administered as well. Patient was placed in Trendelenburg. The robot was brought into the field and the camera was docked and targeted. The operating arms were docked and instruments position. Surgeon went to the robotic console. There were adhesions in the right lower quadrant from what appeared to be previous appendectomy. These were taken down robotically without difficulty. An incision was made anteriorly in the peritoneum across the inguinal canal structures. A peritoneal flap was then developed proceeding from anterior to posterior. The flap was dissected broadly. Medially dissection was carried in the retro rectus space down to Joao's ligament. Careful dissection of Joao's ligament was done and the pubis was found. Dissection was also done in the midline such that the medial border of the left rectus muscle was open. Some additional lateral dissection was performed. We then turned our attention to the indirect hernia. Some traction was placed on the hernia sac and transversalis fibers anteriorly were divided. A carefully retracted the sac anteromedially and dissected fatty tissue and cord structures lateral and posterior. Repeated traction on the hernia sac was carried out with dividing t ransversalis fibers and reducing more of the hernia as we went along. Eventually the end of the hernia sac was found. It was dissected free from the fatty tissue of the cord and the cord structures were further dissected away from the sac and from the peritoneum. The went back to the direct space and found some fatty tissue there constant oozing a direct hernia. This was dissected away and the transversalis fascia was freed. The lipomatous tissue was removed. I then further dissected the Joao's ligament laterally and posteriorly so there was about 2 cm posterior to Joao's ligament for the edge of the mesh. An extra-large, 17 x 12 cm, right mid 3DMax mesh was then introduced into the field. It was positioned over the inguinal canal structures. It was sutured in place with 3-0 Vicryl. Three sutures were placed, the 1st was into Joao's ligament. The other 2 were anterior to fix the mesh to the anterior abdominal wall on both the medial and lateral sides of the mesh. The mesh was in good position. All looked good. Three 0 V lock was then used and the peritoneal flap was closed. All looked good. The 2 needles used were removed from the abdominal cavity. We then removed the instruments and evacuated CO2. The trocars were removed and wounds were closed with subcuticular running 4-0 Monocryl skin suture. The wounds were dressed with Exofin surgical adhesive. Patient was then awakened and taken to recovery in good condition. Sponge needle counts were correct x2. Implants Extra-large, 17 x 12 cm, right mid 3DMax mesh Estimated Blood Loss -10 Drains No Packing No Pathology None sent Complications None Condition Stable Disposition PACU [facility] Billing Surgery - Charge Forward: Surgery Billing (Robotic laparoscopic repair right inguinal hernia with mesh)
[2024-07-09 15:57] LABS: Glucose Point of Care 126 mg/dl (65-105)
== END 2024-07-09 16:30 | disposition home or self-care (01) ==
PROVIDERS: PCP Family Medicine Adolescent Medicine; Visit Provider Surgery
PROC: 8E0Y4CZ Robotic Assisted Procedure of Lower Extremity, Percutaneous Endoscopic Approach (ICD-10-PCS; CPT 49650; principal; 2024-07-09 12:00)
DX: K40.90 Unilateral inguinal hernia, without obstruction or gangrene, not specified as recurrent (principal); G89.18 Other acute postprocedural pain; J45.909 Unspecified asthma, uncomplicated; Z79.51 Long term (current) use of inhaled steroids; Z79.891 Long term (current) use of opiate analgesic; Z98.890 Other specified postprocedural states; Z87.891 Personal history of nicotine dependence; Z83.719 Family history of colon polyps, unspecified; Z80.42 Family history of malignant neoplasm of prostate; Z80.0 Family history of malignant neoplasm of digestive organs; Z82.49 Family history of ischemic heart disease and other diseases of the circulatory system
CPT/HCPCS: 49650; S2900; 82948; A9270; C1781; J0690; J1100; J1596; J1885; J2003; J2250; J2371; J2405; J2704; J3010; J7120

== ENCOUNTER 2025-02-10 10:28 | Outpatient (CLI) | payer MEDICARE, SELFPAY ==
--- NOTE | 2025-02-10 10:35 | ECG_ITS ---
Test Date: 2025-02-10 10:58:54 Measurements Intervals [place] Rate: 51 P: 50 MA: 179 QRS: 8 QRSD: 99 T: 13 QT: 433 QTc: 402 Interpretive Statements SINUS BRADYCARDIA NONSPECIFIC T-WAVE ABNORMALITY ABNORMAL ECG Compared to ECG 10/20/2023 00:16:31 Left ventricular hypertrophy no longer present Myocardial infarct finding no longer present Electronically Signed On 02-10-2025 17:10:56 STATE AUDITOR by Mario Santiago M.D.
[2025-02-10 11:35] LABS: Hematocrit 34.0 % (42.0-52.0); Hemoglobin 11.2 g/dL (14.0-18.0); Immature Granulocyte Percent A 0.3 % (0-0.5); Lymphocytes Absolute Auto 1.67 K/mm3 (0.9-3.2); Mean Corpuscular HGB Conc 32.9 g/dl (32-36); Mean Corpuscular Hemoglobin 31.9 pg (26-34); Mean Corpuscular Volume 96.9 fl (80-100); Nucleated Red Blood Cells Absolute Auto 0.000 K/mm3 (0.0-0.012); Nucleated Red Blood Cells Perc 0.0 % (0.0-0.2); Platelet Count Result 235 k/mm3 (150-375); Red Blood Count 3.51 M/mm3 (4.6-6.20); White Blood Count 6.7 K/mm3 (4.5-10.0)
[2025-02-10 11:47] LABS: INR 1.1; Prothrombin Time 14.0 Seconds (11.1-14.7)
[2025-02-10 11:48] LABS: Partial Thromboplastin Time 33.3 Seconds (22.3-36.8)
[2025-02-10 11:54] LABS: Anion Gap 6 mmol/L (4-12); Blood Urea Nitrogen 43 mg/dL (9-20); Calcium 9.2 mg/dL (8.4-10.2); Carbon Dioxide 26 mmol/L (22-30); Chloride 108 mmol/L (98-107); Estimated Glomerular Filt Rate 44; Glucose 96 mg/dL (65-110); Potassium 4.2 mmol/L (3.4-5.0); Sodium 140 mmol/L (137-145)
== END 2025-02-10 10:29 | disposition home or self-care (01) ==
LOC: ANHSURGERY 10:32
PROVIDERS: Anesthesiology; PCP Family Medicine Adolescent Medicine; Visit Provider Surgery
DX: Z01.818 Encounter for other preprocedural examination (principal); I12.9 Hypertensive chronic kidney disease with stage 1 through stage 4 chronic kidney disease, or unspecified chronic kidney disease; N18.32 Chronic kidney disease, stage 3b; K40.90 Unilateral inguinal hernia, without obstruction or gangrene, not specified as recurrent; R94.31 Abnormal electrocardiogram [ECG] [EKG]
CPT/HCPCS: 36415; 80048; 85025; 85610; 85730; 93005

== ENCOUNTER 2025-02-24 01:13 | Day surgery (SDC) | payer MEDICARE, SELFPAY ==
--- NOTE | 2025-02-05 13:40 | PC.NURSE ---
[facility] has started construction of its new state of the art ER which will open Spring 2026. With this, we anticipate parking may be a challenge for some our surgical patients and families. Parking spaces are limited but are available for all Surgical, obstetrics, and ER patients sharing this lot. If you arrive and find you are having a hard time finding a parking space, please note that we understand the challenges, please drive around the hospital and park near Hospital Entrance 1. When you enter this entrance, you can ask a volunteer to direct or take you back to the surgical waiting area to check in. We appreciate everyone?s understanding of these expected challenges while we build for your future. Report to the Outpatient Waiting Room, entrance under the green pavilion located off [address], at time __11:30 AM on date __02/24/25 . Planned Procedure Time: __1:30 PM .? Time changes happen often and if your time is changed the preop area will call you the afternoon before. - You and your visitor will be asked to self-screen and do not enter if you have any COVID symptoms. Please call surgeon if you need to reschedule. - A mask is optional within the hospital at this time. Patients may have clear liquids (water, carbonated beverages, clear teas, apple juice) until 3 hours prior to surgery( 10:30 AM) with a maximum of 20 ounces. - No food from midnight until time of surgery and no smoking, or chewing tobacco (or any form of nicotine). No chewing gum, candy or mints. - I Take only the following medications with a SIP of water on the morning of surgery: __SYMBICORT INHALER, AMLODIPINE,CARVEDILOL DO NOT STOP ANY OF YOUR OTHER PRESCRIPTION MEDICATIONS PRIOR TO SURGERY EXCEPT THE FOLLOWING Hold all vitamins and supplements for 3 days per anesthesiologist.LAST DOSE 02/20/25 Medications to discontinue per physician NONE Date to take last dose Please no make-up, nail angolan, hairspray, perfume, deodorant, or body powder the day of surgery.? No jewelry (including any body piercings) or valuables the day of surgery, leave them at home.? Please take a shower or bath the night before, or the morning of, surgery with an antibacterial soap.? Wear comfortable, loose fitting clothing.? Children are encouraged to wear pajamas. - Jewelry must be removed prior to entering the operating room.? Rings and piercings that are not removed may be cut off. - The hospital will not accept responsibility for valuables.? - Please leave all valuables, including medications, at home the day of surgery. If you are going home after surgery, a licensed hi low truck driver must drive you home.? - NO public transportation without another adult if you receive anesthesia. - We recommend that an adult stay with you for 24 hours following discharge. - We also recommend that you do not drive, make important decision, drink alcoholic beverages, or take any drugs that were not prescribed by your health care provider for at least 24 hours after your discharge time. For Pediatric surgeries, we recommend two adults accompany the child home. Follow any additional instructions given to you from your surgeon. Telephone instructions given to ___PATIENT AND WIFE and asked if any additional questions and then verbalized understanding. Patient advised to call surgeon office or pre surgery nurse liaison [phone] if any additional questions.
[2025-02-05 13:55] VITALS: BMI 24.7
--- NOTE | 2025-02-23 14:35 | PM.SD2 ---
Same Day Admit/Disch: HPI History of Present Illness Chief complaint: Lt Ing Hernia Narrative: Selvin Orozco is a 79 year old male who had a robotic laparoscopic repair of right inguinal hernia with mesh July 09, 2024. He recovered uneventfully from this. Then, in December, he started noticing pain and a bulge in the left groin. He was examined in the office and found to have a reducible left inguinal hernia. After discussion, he is taken to surgery now for robotic laparoscopic repair with mesh. Patient is also known to me from laparoscopic Bunny fundoplication performed September 19, 2023. He has a history of asthma, hypertension, gout, and arthritis. [facility] Past Medical History Medical History (Updated 02/24/25 @ 17:24 by Danielito Arias MD) Mild intermittent asthma, uncomplicated Chronic kidney disease, stage 3b Hypertension Hiatal hernia Belching Fracture of triquetral bone of left wrist Normal colonoscopy 2010 Asthma Arthritis of ankle, right, degenerative Surgical History Surgical History History of robot-assisted repair of right inguinal hernia (06/2024) 07/09/24 Robotic laparoscopic repair right inguinal hernia with mesh Dr. Arias History of Bunny fundoplication (08/2023) laparoscopic 09/19/23 History of bladder surgery Family History Family History Father Malignant neoplasm of prostate Carcinoma of colon Colon polyp Heart disease Hypertension Other Asthma Social History Social History Smoking packs per day: 0.5 Smoking cigarettes per day: 10.0 Years smoked: 16 Smoking pack-years: 8.00 Smoking status: Former smoker Tobacco type: cigarettes Second hand tobacco smoke exposure: No Smoking end date: 09/22/89 Alcohol intake: never Substance use: never Substance use type: does not use Lack of Transportation: No Lack of Food: Never True Current Housing: I Have Housing Concerned About Future Housing: No Difficulty Paying Gas/Electric Bills: No Difficulty Paying for Meds: No Currently Unemployed: No Education: High School Diploma/GED Difficulty w/ Childcare or Family Care: No Living arrangements: with family Additional living arrangements comments: Occupation/Education: retired Gender identity (if verbalized by the patient): Male Sexual Orientation (if Verbalized by the Patient): Straight or Heterosexual Spiritual care concerns: No Agree to blood products: Yes Same Day Admit/Disch: Med Pre-admit Medications Home Medications ?Medication ?Instructions ?Recorded ?Confirmed ?Type albuterol sulfate 90 mcg/actuation 2 puff inhalation Q4H PRN 06/12/21 02/05/25 History aerosol inhaler Shortness Of Breath colchicine 0.6 mg capsule 0.6 mg PO .PRN PRN GOUT 07/12/21 02/05/25 History cetirizine 10 mg tablet 10 mg PO DAILY 10/10/21 02/24/25 History cholecalciferol (vitamin D3) 125 125 mcg PO 3XW 10/10/21 02/24/25 History mcg (5,000 unit) tablet (Vitamin D3) budesonide-formoterol HFA 160 2 puff inhalation BID 05/01/23 02/05/25 History mcg-4.5 mcg/actuation aerosol inhaler (Symbicort) carvedilol 25 mg tablet 25 mg PO BID #180 tabs 03/29/24 02/24/25 Rx diclofenac sodium 75 mg 75 mg PO BID #180 tabs 04/02/24 02/05/25 Rx tablet,delayed release atorvastatin 20 mg tablet 10 mg (1/2 x 20 mg) PO DAILY #45 06/22/24 02/24/25 Rx tabs amlodipine 5 mg tablet 5 mg PO QAM 06/29/24 02/24/25 History allopurinol 300 mg tablet See Rx Instructions .Route 10/10/24 02/24/25 Rx .COMPLEX #90 tabs montelukast 10 mg tablet 10 mg PO DAILY #90 tabs 10/10/24 02/24/25 Rx losartan 100 mg tablet See Rx Instructions .Route 10/29/24 02/24/25 Rx .COMPLEX #90 tabs vitamin B complex 1 tablet PO DAILY 02/05/25 02/24/25 History zinc 50 mg capsule 50 mg PO DAILY 02/05/25 02/24/25 History oxycodone-acetaminophen 5 mg-325 0.5 - 1 tablet PO Q4H PRN pain #15 02/24/25 Rx mg tablet (Percocet) tabs Review of Systems Review of Systems All systems reviewed & are unremarkable except as noted in HPI and below (HPI) Exam Const: General: comfortable, no acute distress, alert and awake HENMT: Head: normocephalic and atraumatic Mouth: Yes Normal oral and palatal mucosa present Eyes: Conjunctivae: conjunctivae normal Pupils: Equal, round and reactive pupils present EOM: EOMs intact bilaterally Neck: Neck: normal visual inspection, no lymphadenopathy and nontender Resp: Effort & Inspection: normal respiratory effort Auscultation: clear to auscultation bilaterally Cardio: Rate: regular rate Rhythm: regular rhythm Heart sounds: no gallops, no murmurs and no rubs GI: Inspection: non-distended GI Palp: Yes Soft to palpation, No Tenderness to palpation present (GI), No Hepatomegaly present and No Splenomegaly present : Male General Exam: Yes hernia (Small left inguinal hernia noted. Pulses with cough, reduces) and Yes other (No right inguinal hernia) Penis: Yes normal penis Scrotum: scrotum normal Testes: Testes normal Skin: Lesions: no lesions Rashes: no rashes Neuro: General: no focal motor deficits and CN's II-XI intact bilaterally Cranial nerves: Yes Equal, round and reactive pupils present, Yes Bilaterally intact EOM present, Yes facial symmetry and Yes Midline tongue present Speech: normal speech Motor exam (neuro): 5/5 motor strength present throughout and Motor abnormalities not present Extrem: General: no clubbing, cyanosis or edema and edema Psych: Affect: normal affect Thought process: Normal thought process present Insight: Good insight present (Psych) DS: Summary Time Spent with Patient Time attestation: Total time spent providing and/or coordinating discharge services: DS: Admitting Diagnosis Discharge Date 02/24/2025 Admitting Diagnosis Reducible, symptomatic, left inguinal hernia-plan to proceed with robotic laparoscopic repair with mesh. Procedure was discussed with the patient in detail. He has had this procedure performed on the right side and so is familiar with the operation. The usual length of surgery and length of recovery were discussed. All questions were answered, he agrees to go ahead. Asthma Essential hypertension Gout History Bunny fundoplication, hiatal hernia repair DS: Discharge Diagnosis Discharge Diagnosis (1) Left inguinal hernia: Code(s): K40.90 - Unilateral inguinal hernia, without obstruction or gangrene, not specified as recurrent Status: Chronic Assessment and Plan: Robotic laparoscopic repair left inguinal hernia performed 02/24/[address] Arias Discharge Plan Discharge Patient Disposition: Home Discharge Instructions: 1. May shower the day after surgery over incisions. 2. Call office for: -Wound increasingly painful or bleeding -Vomiting -Fever of greater than 101 degrees 3. Were scrotal support at all times except when sleeping or showering for 1 week 4. If no bowel movement for three days, take 1 oz. (30 ml) Milk of Magnesia, if no results, take Fleets enema. 5. No heavy lifting > 15-20 pounds for 2 weeks. 6. No driving for 3 days or while taking narcotic pain medications. 7. Up walking 10-30 minutes three times per day. 8. Resume previous home medications. 9. Follow-up 10-14 days in office for wound check or as previously scheduled. 10. Oral pain medications prescription to be sent home with patient. 11. NUTRITION: Start out by drinking fluids and increase your diet as tolerated. If you experience nausea, try dry toast, crackers, and 7-UP. If nausea or vomiting persists, contact your surgeon?s office. Patient Language: [place] Stand Alone Forms: General Discharge Instructions Follow-up/Referrals: Danielito Arias MD [Physician, General Surgery] - 2 Weeks Discharge Medications: New oxycodone-acetaminophen [Percocet] 5-325 mg tablet 0.5 - 1 tablet PO Q4H PRN (Reason: pain) Qty: 15 0RF Continued colchicine 0.6 mg capsule 0.6 mg PO .PRN PRN (Reason: GOUT) albuterol sulfate 90 mcg/actuation HFA aerosol inhaler 2 puff inhalation Q4H PRN (Reason: Shortness Of Breath) budesonide-formoterol [Symbicort] 160-4.5 mcg/actuation HFA aerosol inhaler 2 puff inhalation BID diclofenac sodium 75 mg tablet,delayed release (DR/EC) 75 mg PO BID Qty: 180 3RF cetirizine 10 mg Tablet 10 mg PO DAILY cholecalciferol (vitamin D3) [Vitamin D3] 125 mcg (5,000 unit) Tablet 125 mcg PO 3XW Rx Instructions: Takes on Mondays -WED- SAT amlodipine 5 mg tablet 5 mg PO QAM zinc 50 mg capsule 50 mg PO DAILY vitamin B complex Tablet 1 tablet PO DAILY carvedilol 25 mg tablet 25 mg PO BID Qty: 180 2RF Rx Instructions: must administer with a meal/food atorvastatin 20 mg tablet 10 mg PO DAILY Qty: 45 2RF montelukast 10 mg tablet 10 mg PO DAILY Qty: 90 2RF allopurinol 300 mg tablet See Rx Instructions .ROUTE .COMPLEX Qty: 90 3RF Dose Instruction: TAKE 1 TABLET BY MOUTH EVERY DAY Rx Instructions: TAKE 1 TABLET BY MOUTH EVERY DAY losartan 100 mg tablet See Rx Instructions .ROUTE .COMPLEX Qty: 90 2RF Dose Instruction: TAKE 1 TABLET BY MOUTH EVERY DAY Patient Comments: TAKING HS PER [facility] INSTRUCTION Rx Instructions: TAKE 1 TABLET BY MOUTH EVERY DAY IN MORNING
[2025-02-24] VITALS (9 sets, daily range): BP systolic 149–171; BP diastolic 67–81; PULSE 57–68; RESP 12–18; TEMP 36–36.1; O2SAT 97–100; BMI 23.8
[2025-02-24] MEDS: LACTATED RINGERS 1,000 ML 30 ML IV CONT ×2 (12:20→17:18)
[2025-02-24] MEDS: ACETAMINOPHEN 500 MG TABLET 1000 MG PO (12:28)
[2025-02-24] MEDS: KETOROLAC 15 MG/ML VIAL (*BKC) IV PUSH (12:28)
--- NOTE | 2025-02-24 13:25 | SUR.PREOP ---
1325- Patient and family aware of delay to procedure start time. Offered patient restroom and Selvin maylin. Pt. denying any needs at this time.
--- NOTE | 2025-02-24 13:38 | WPDANESEPPF ---
Anes - Initial Pre Proc Eval Procedure: Operation Date: 02/24/25 13:30 Proposed Procedures p Robotic Repair Left Inguinal Hernia with Mesh - Danielito Arias MD Date/Time: 02/24/25 13:38 Surgeon: Danielito Arias MD Pre Op Diagnosis: Lt Ing Hernia Patient Data Age: 79 Gender: M Height: 1.83 m Weight: 79.6 kg Last Vital Signs Temp 36.0 C L 02/24/25 12:35 Pulse 57 L 02/24/25 12:35 Resp 16 02/24/25 12:35 BP 167/68 H 02/24/25 12:35 Pulse Ox 97 02/24/25 12:35 O2 Del Method Room Air 02/24/25 12:35 Allergies Allergy/AdvReac Type Severity Reaction Status Date / Time lisinopril AdvReac Intermediate Cough Verified 02/24/25 12:39 acarbose AdvReac Unknown Rash Verified 02/24/25 12:39 Home Medications ?Medication ?Instructions ?Recorded ?Confirmed ?Type albuterol sulfate 90 mcg/actuation 2 puff inhalation Q4H PRN 06/12/21 02/05/25 History aerosol inhaler Shortness Of Breath colchicine 0.6 mg capsule 0.6 mg PO .PRN PRN GOUT 07/12/21 02/05/25 History cetirizine 10 mg tablet 10 mg PO DAILY 10/10/21 02/24/25 History cholecalciferol (vitamin D3) 125 125 mcg PO 3XW 10/10/21 02/24/25 History mcg (5,000 unit) tablet (Vitamin D3) budesonide-formoterol HFA 160 2 puff inhalation BID 05/01/23 02/05/25 History mcg-4.5 mcg/actuation aerosol inhaler (Symbicort) carvedilol 25 mg tablet 25 mg PO BID #180 tabs 03/29/24 02/24/25 Rx diclofenac sodium 75 mg 75 mg PO BID #180 tabs 04/02/24 02/05/25 Rx tablet,delayed release atorvastatin 20 mg tablet 10 mg (1/2 x 20 mg) PO DAILY #45 06/22/24 02/24/25 Rx tabs amlodipine 5 mg tablet 5 mg PO QAM 06/29/24 02/24/25 History allopurinol 300 mg tablet See Rx Instructions .Route 10/10/24 02/24/25 Rx .COMPLEX #90 tabs montelukast 10 mg tablet 10 mg PO DAILY #90 tabs 10/10/24 02/24/25 Rx losartan 100 mg tablet See Rx Instructions .Route 10/29/24 02/24/25 Rx .COMPLEX #90 tabs vitamin B complex 1 tablet PO DAILY 02/05/25 02/24/25 History zinc 50 mg capsule 50 mg PO DAILY 02/05/25 02/24/25 History Laboratory Tests 02/24/25 12:26 Blood Type A Negative Antibody Screen Negative Patient hx anesthesia problems: none Family hx anesthesia problems: none Results Review: All pre-operative results and documents have been reviewed as part of the pre-operative evaluation. [facility] Past Medical History Medical History (Updated 02/24/25 @ 13:47 by Nakul Manuel DO) Mild intermittent asthma, uncomplicated Chronic kidney disease, stage 3b Hypertension Hiatal hernia Belching Fracture of triquetral bone of left wrist Normal colonoscopy 2010 Asthma Arthritis of ankle, right, degenerative Surgical History Surgical History History of robot-assisted repair of right inguinal hernia (06/2024) 07/09/24 Robotic laparoscopic repair right inguinal hernia with mesh Dr. Arias History of Bunny fundoplication (08/2023) laparoscopic 09/19/23 History of bladder surgery Family History Family History Father Malignant neoplasm of prostate Carcinoma of colon Colon polyp Heart disease Hypertension Other Asthma Social History Social History Smoking packs per day: 0.5 Smoking cigarettes per day: 10.0 Years smoked: 16 Smoking pack-years: 8.00 Smoking status: Former smoker Tobacco type: cigarettes Second hand tobacco smoke exposure: No Smoking end date: 09/22/89 Alcohol intake: never Substance use: never Substance use type: does not use Lack of Transportation: No Lack of Food: Never True Current Housing: I Have Housing Concerned About Future Housing: No Difficulty Paying Gas/Electric Bills: No Difficulty Paying for Meds: No Currently Unemployed: No Education: High School Diploma/GED Difficulty w/ Childcare or Family Care: No Living arrangements: with family Additional living arrangements comments: Occupation/Education: retired Gender identity (if verbalized by the patient): Male Sexual Orientation (if Verbalized by the Patient): Straight or Heterosexual Spiritual care concerns: No Agree to blood products: Yes Anes - Eval Final PreProcedure Day of Procedure 02/24/25 13:38 Patient weight: normal Heart: regular rate and rhythm Lungs: clear to auscultation Airway: Mallampati scale class II Neurological: alert and oriented Last oral intake: >/= 8 hours ASA classification: III Emergent: no Anesthetic plan: proceed Anesthesia type and monitoring: general ETT and standard monitoring Results Review: All pre-operative results and documents have been reviewed as part of the pre-operative evaluation. Informed Consent: The patient's anesthetic plan and its attendant risks and benefits were discussed with the patient/family/POA. Questions were solicited and answers provided to the satisfaction of the patient/family/POA.
--- NOTE | 2025-02-24 14:40 | WPDHPUPDATE1 ---
History and Physical Update Update Date/Time: 02/24/25 14:40 History and Physical has been reviewed, including an updated exam of the patient. There are NO changes in the patient's condition. Risks, benefits, and alternatives have been discussed and questions answered. Patient agrees to proceed with procedure.
[2025-02-24] MEDS: ceFAZolin 2 GM in SODIUM CHLORIDE 0.9% IV 50 ML 100 ML IVPB (14:52)
[2025-02-24] MEDS: BUPIVACAINE/EPINEPHRINE 0.5% 50 ML VIAL 30 ML INFILTRATE (15:29)
--- NOTE | 2025-02-24 17:25 | P.OP_ITS ---
Procedure Note - Detailed Date of Procedure 02/24/25 Pre-op Diagnosis Lt Ing Hernia Post-op Diagnosis Same Procedure Performed Robotic laparoscopic repair left inguinal hernia with mesh Surgeon Danielito Arias MD Visual Communications Instructor Ekaterina LOYA Anesthesia General and Local Indications Patient noticed a bulge in the left groin about 2 months ago. He had robotic right inguinal hernia repair in June of this year. He saw me in the office and was found now have a left inguinal hernia. He is taken to surgery now for robotic repair with mesh Findings This was an indirect hernia. There was sigmoid colon in the hernia defect. The previous repair is intact in looked good. Description of Procedure Patient was taken to surgery and induced into general anesthesia. The abdomen is prepped and draped. Trocars were placed in the usual fashion starting with an applied Medical optical trocar. I used the 3 previous trocar site scars to place these trocars. Patient was placed in Trendelenburg. The robotic arms were brought in to the field. The robot was docked and the instruments were positioned appropriately. The surgeon then went to the robotic console. There were a lot of sigmoid colon adhesions in the area of the hernia defect. I took down several of these taking care not to disrupt to the peritoneum that I would be using as a flap. Eventually I could see that there was an indirect hernia and that part of the sigmoid colon was in the hernia defect. I was able to reduce this. I then created an anterior peritoneal flap. I started laterally and proceeded medially. The flap was developed broadly. Dissecting medially just behind the left rectus muscle, there were quite a few adhesions from the previous hernia repair. This was more bloody than usual. The previously placed mesh was found and was in good position. I continued the dissection broadly further developing the peritoneal flap posteriorly. I then placed traction on the hernia and divided the transversalis sling over the anterior aspect of the hernia. Continued traction and cautery allowed the hernia sac to reduce. I was then able to place traction on the hernia sac and carefully dissect the cord structures from the sac and then from the peritoneal flap. The dissection was continued so there was at least 5 or 6 cm posterior to the internal ring to place the mesh. I dissected medially freeing up the tissue over the previous mesh. Eventually full exposure was carried out. I did not see any other hernias. An extra-large, 17 x 12 cm, left mid 3DMax mesh was then introduced into the abdominal cavity. I placed it over the inguinal canal structures in the usual fashion. It lay very nicely. I then used 3-0 Vicryl and sutured the mesh to Joao's ligament. The 2 meshes overlapped medially. I then placed anterior sutures of 3-0 Vicryl medially and laterally to secure the mesh in this position. From here, I used 3-0 V lock suture and, starting laterally, closed the peritoneal flap in running fashion. We then retrieved all the suture needles. All looked good. We the removed the instruments and evacuated CO2 after undocking the robot. The trocars were then removed. Skin wounds were closed with subcuticular 4-0 Monocryl skin suture. The wounds were dressed with Exofin surgical adhesive. The patient was then awakened and taken to recovery in good condition. Sponge and needle counts were correct x2. Implants Extra-large, 17 x 12 cm, left mid 3D max mesh Estimated Blood Loss -5 Drains No Packing No Pathology None sent Complications None Condition Stable Disposition PACU [facility] Billing Surgery - Charge Forward: Surgery Billing (Robotic laparoscopic repair left inguinal hernia with mesh)
[2025-02-24] MEDS: fentaNYL CITRATE INJ (*CRX) 100 MCG/2 ML VIAL 25 MCG IV PUSH ×4 (17:28→18:01)
== END 2025-02-24 18:58 | disposition home or self-care (01) ==
PROVIDERS: PCP Family Medicine Adolescent Medicine; Visit Provider Surgery
PROC: 8E0Y4CZ Robotic Assisted Procedure of Lower Extremity, Percutaneous Endoscopic Approach (ICD-10-PCS; CPT 49650; principal; 2025-02-24 13:30)
DX: K40.90 Unilateral inguinal hernia, without obstruction or gangrene, not specified as recurrent (principal); G89.18 Other acute postprocedural pain; J45.909 Unspecified asthma, uncomplicated; I12.9 Hypertensive chronic kidney disease with stage 1 through stage 4 chronic kidney disease, or unspecified chronic kidney disease; N18.32 Chronic kidney disease, stage 3b; Z79.51 Long term (current) use of inhaled steroids; Z79.891 Long term (current) use of opiate analgesic; Z98.890 Other specified postprocedural states; Z87.891 Personal history of nicotine dependence; Z83.719 Family history of colon polyps, unspecified; Z80.42 Family history of malignant neoplasm of prostate; Z80.0 Family history of malignant neoplasm of digestive organs; Z82.49 Family history of ischemic heart disease and other diseases of the circulatory system
CPT/HCPCS: 49650; S2900; 36415; 86850; 86900; 86901; J0690; A9270; C1781; J1596; J1885; J2003; J2250; J2405; J2704; J3010; J7030; J7120